=== PATIENT | female | born 2000 | race Caucasian/White ===

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

== ENCOUNTER 2022-01-30 03:24 | Emergency (ER) | payer MEDICAID, SELFPAY ==
[2022-01-30 03:30] VITALS: BP 126/103; PULSE 62; RESP 18; TEMP 36.4; O2SAT 100
--- OUTSIDE RECORDS SUMMARY | 2022-01-30 03:31 | XMS_ITS | Encounter Summary ---
:2000 Author Organization [facility] Address [address] [place] [address] Care Team Providers Name Role Phone Felix Smith MD Primary Care Provider Encounter Details Date Type Department Care Team Description 07/27/2003 Hospital Encounter [facility] - Felix Smith, Trinity MD [address] [facility] [address] [place] [address] [facility] [phone] [place] [id number] (Wo rk) Social History Tobacco Use Types Packs/Day Years Used Date Never Assessed Sex Assigned at Date Recorded Not on file documented as of this encounter Plan of Treatment Not on filedocumented as of this encounter Visit Diagnoses Not on filedocumented in this encounter Care Teams Emergency Services Dispatcher Relationship Specialty Start Date End Date Felix Smith MD PCP - General 01/17/10 [address] [place] [address] documented as of this encounter
--- OUTSIDE RECORDS SUMMARY | 2022-01-30 03:31 | XMS_ITS | Encounter Summary ---
:2000 Author Organization [facility] Address [address] [place] [address] Care Team Providers Name Role Phone Unavailable Primary Care Provider Unavailable Encounter Details Date Type Department Care Team Description 08/04/2005 Hospital En[facility] [id number] [place] [phone] (Wo rk) Social History Tobacco Use Types Packs/Day Years Used Date Never Assessed Sex Assigned at Date Recorded Not on file documented as of this encounter Discharge Disposition Disposition Code Departure Means Destination Auto Discharge documented in this encounter Plan of Treatment Not on filedocumented as of this encounter Visit Diagnoses Not on filedocumented in this encounter
--- OUTSIDE RECORDS SUMMARY | 2022-01-30 03:31 | XMS_ITS | Encounter Summary ---
:2000 Author Organization [facility] Address [address] [place] [address] Care Team Providers Name Role Phone Felix Smith MD Primary Care Provider Encounter Details Date Type Department Care Team Description 02/18/2021 Lab Requisition [facility] Outr Resulting Lab, Pathology & Laboratory Provider [facility] [address] [place] [id number] Social History Tobacco Use Types Packs/Day Years Used Date Never Assessed Sex Assigned at Date Recorded Not on file documented as of this encounter Plan of Treatment Not on filedocumented as of this encounter Procedures Procedure Name Priority Date/Time Associated Comments Diagnosis CHLAMYDIA/N. Routine 02/17/2021 14:15 Results for this GONORRHOEAE AMPLIFIED EDT proced ure are in RNA the results section. documented in this encounter Results CHLAMYDIA/N. GONORRHOEAE AMPLIFIED RNA (02/17/2021 14:15 EDT) Pathologist Sig nature Gonococcus Result Negative Negative [facility] Chlamydia Result Negative Negative [facility] Specimen Urine - Urine, Initial Void Narrative [facility] - 02/19/2021 16:48 EDT A first catch urine specimen is acceptab le for detection of Gonorrhea and Chlamydia, but might detect up to 10% fewer infecti ons when compared with vaginal and endocervical swab samples. Performing Organization Address City/State/ZIP Code Phon e Number [facility] [address] [place] [address] SERVICES documented in this encounter Visit Diagnoses Not on filedocumented in this encounter Care Teams Information Officer Relationship Specialty Start Date End Date Felix Smith MD PCP - General 01/17/10 [address] [place] [address] documented as of this encounter
--- OUTSIDE RECORDS SUMMARY | 2022-01-30 03:31 | XMS_ITS | Encounter Summary ---
:2002 Author Organization [facility] Address [address] [place] [address] Care Team Providers Name Role Phone Felix Smith MD Primary Care Provider Encounter Details Date Type Department Care Team Description 11/04/2021 Lab Requisition [facility] Outr Resulting Lab, Pathology & Laboratory Provider [facility] [address] [place], [place] [address] Social History Tobacco Use Types Packs/Day Years Used Date Never Assessed Sex Assigned at Date Recorded Not on file documented as of this encounter Plan of Treatment Not on filedocumented as of this encounter Procedures Procedure Name Priority Date/Time Associated Comments Diagnosis CHLAMYDIA/N. Routine 11/03/2021 16:00 Results for this GONORRHOEAE AMPLIFIED EDT proced ure are in RNA the results section. documented in this encounter Results CHLAMYDIA/N. GONORRHOEAE AMPLIFIED RNA (11/03/2021 16:00 EDT) Pathologist Sig nature Gonococcus Result Negative Negative [facility] Chlamydia Result Negative Negative [facility] Specimen Swab - Entire endocervix (body structure ) Performing Organization Address City/State/ZIP Code Phon e Number [facility] [address] [place] [address] SERVICES documented in this encounter Visit Diagnoses Not on filedocumented in this encounter Care Teams Parking Regulation Enforcement Officer Relationship Specialty Start Date End Date Felix Smith MD PCP - General 01/17/10 [address] [facility] [place] [address] documented as of this encounter
--- OUTSIDE RECORDS SUMMARY | 2022-01-30 03:31 | XMS_ITS | Encounter Summary ---
:2000 Author Organization Address [address] [place] [address] Care Team Providers Name Role Phone Felix Smith MD Primary Care Provider Reason for Visit Reason Onset Date Comments Head Lice 11/10/2011 Encounter Details Date Type Department Care Team Description 11/10/2011 Telephone [facility] Dereck Ortiz MD Head Lice [facility] - [address] [phone] [place], [place] [id number] [phone] Social History Tobacco Use Types Packs/Day Years Used Date Never Assessed Sex Assigned at Date Recorded Not on file documented as of this encounter Ordered Prescriptions Prescription Sig Dispensed Refills Start Date End Date spinosad 0.9 % Susp Apply 1 application 1 Bottle 1 2 012 11/12/2011 topically daily for 1 day. Repeat once in one week documented in this encounter Miscellaneous Notes Telephone Encounter - Tamara Valdovinos - 11/11/2011 1042 EDT Notified mom that script had been sent in elephone Encounter - Willam Turner MD - 11/11/2011 1035 EDT Script sent in. Will wait to see if PA needed elephone Encounter - Yumiko Stark - 11/11/2011 0938 EDT She used nix OTC and mayonnaise twice for both. elephone Encounter - Willam Turner MD - 11/11/2011 0931 EDT We need to document exactly what she has tried and how many times because the prescriptions require PA elephone Encounter - Yumiko Stark - 11/11/2011 0906 EDT Message forwarded to DR. Turner does patient need office visit or can prescription be called in. Please advise. Thank you Telephone Encounter - Shereen Kerns - 11/10/2011 1612 EDT With mom now for the next week or so, has head lice and mom states she has tried everything, but cannot get rid of them, looking to see if we could call in a prescription for head lice, would like to use [facility] [place] [facility] pt has not been seen here since 01.21.10 and that she may get a phone call back tomorrow documented in this encounter Plan of Treatment Not on filedocumented as of this encounter Visit Diagnoses Not on filedocumented in this encounter Care Teams Paint Prepper Relationship Specialty Start Date End Date Felix Smith MD PCP - General 01/17/10 [address] [place] [address] documented as of this encounter
--- OUTSIDE RECORDS SUMMARY | 2022-01-30 03:31 | XMS_ITS | Encounter Summary ---
:[address] [facility] Address [address] [place] [address] Care Team Providers Name Role Phone Unavailable Primary Care Provider Unavailable Encounter Details Date Type Department Care Team Description 08/04/[address] [facility] - Gwendolyn Nur, Converted Visit Myrna barroso MD (Map) [address] [facility] [address] [place] [address] [place], [place] [phone] (Wo rk) Social History Tobacco Use Types Packs/Day Years Used Date Never Assessed Sex Assigned at Date Recorded Not on file documented as of this encounter Progress Notes Gwendolyn Nur MD - 05/11/2009 0959 EST PROGRESS/FOLLOWUP NOTE - 08/04/2005 August 05, 2005 Felix Smith MD [facility], [address] [place] [address] Smith: I had the pleasure of seeing Jodie in our cardiology clinic on 08/04/2005. She is a 5- year- old child who has been seen in the past and thought to have an innocent murmur. She is here for a followup visit with us. Since her last visit, she has generallybeen healthy. She has required albuterol and Pulmicort by nebulized therapy on a b.i.d. basis. Jodie's pulmonary status has been stable and she hashad no need for a chest x- ray or emergency room visit. At present, she has a mild upper respiratoryinfection. There has been no decline in her exercise tolerance and she seems to keep up easily with other children in running. She has had no dizzy spells or apparent chest discomfort. She has not had any complaints. There were no concerns raised on review of systems. She had PE tube placement withoutanesthetic complications. Jodie has an amoxicillin allergy. On physical examination, her height was 98 cm and weight was 15.1 kg. She had a right arm blood pressure of 97/68 with a pulse of 98 and a respiratory rate of 24. She was a emil little girl, who allowed for good examination. There was no precordial bulge or thrill. Her first and second heart sounds were regular and S2 moved appropriately with respiratory variation. There was no click, gallop, or rub noted. There was only a soft systolic murmur heard at the lower sternal border when she was supine.There was no murmur heard posteriorly. Her lungs were clear without wheezing or increased work of breathing. Her liver was not enlarged and no jugular venousdistention was appreciated. Her peripheral pulses were normal in the upper and lower extremities. Her electrocardiogram demonstrated sinus rhythm with a small rSR' pattern in the right precordium that can be normal for age. There was no atrial enlargement or ventricular hypertrophy seen. There was sinus arrhythmia. Although I felt that Jodie continued to only have an innocent murmur on examination today, I wantedto be sure that there was no atrial defect given her pulmonary issues. Indeed, her echocardiogram demonstrated no evidence of structural abnormality. The atrial septum was intact. She had normal ventricular function and a normal Doppler study of the intracardiac valves. In summary, Jodie is a youngster with an innocent murmur heard on examination today. SBE prophylaxis is not indicated, and we have not restricted her physical activities. We have discussed that her murmur may be more prominent at times when she is excited or ill. We have not made plans to follow her routinely in the cardiology clinic, although we would be happy to see her again in the future if you have any further concerns. Thank you for sending her to see us today. Sincerely, Signed by Gwendolyn Nur MD 08/12/2005 22:02 Elis Nur, [facility] [phone] Ann Drucker, MD Gwendolyn Nur MD Division of Pediatric Cardiology [phone] - Gwendolyn Nur MD P - O4 Job ID: [id number] Document ID: [id number] cc: Felix Smith MD documented in this encounter Plan of Treatment Not on filedocumented as of this encounter Visit Diagnoses Not on filedocumented in this encounter
--- OUTSIDE RECORDS SUMMARY | 2022-01-30 03:31 | XMS_ITS | Encounter Summary ---
:2000 Author Organization [facility] Address [address] [place] [address] Care Team Providers Name Role Phone Unavailable Primary Care Provider Unavailable Encounter Details Date Type Department Care Team Description 2002 - Hospital Encounter [facility] Felix Smith, 2002 Hospital Nursery [facility] [address] [address] [facility] [phone] [place] [address] Social History Tobacco Use Types Packs/Day Years Used Date Never Assessed Sex Assigned at Date Recorded Not on file documented as of this encounter Discharge Disposition Disposition Code Departure Means Destination Home-Health Care Svc documented in this encounter Plan of Treatment Not on filedocumented as of this encounter Visit Diagnoses Not on filedocumented in this encounter
--- OUTSIDE RECORDS SUMMARY | 2022-01-30 03:31 | XMS_ITS | Encounter Summary ---
:[address] [facility] Address [address] [place] [address] Care Team Providers Name Role Phone Unavailable Primary Care Provider Unavailable Encounter Details Date Type Department Care Team Description 07/03/2003 Hospital Encounter [facility] - Michelle Meza [facility] MD Adam 111 [facility] [address] [place], [place] [phone] [place] [address] [facility] Level [address] [place] [phone] (Wo rk) Social History Tobacco Use Types [...]
--- OUTSIDE RECORDS SUMMARY | 2022-01-30 03:31 | XMS_ITS | Encounter Summary ---
:2000 Author Organization [facility] Address [address] [place] [address] Care Team Providers Name Role Phone Felix Smith MD Primary Care Provider Reason for Visit Reason Onset Date Comments Head Lice 11/11/2011 Encounter Details Date Type Department Care Team Description 11/11/2011 Telephone [facility] Felix Alarcon MD Head Lice [facility] [id number] [place] [phone] (Wo rk) Social History Tobacco Use Types Packs/Day Years Used Date Never Assessed Sex Assigned at Date Recorded Not on file documented as of this encounter Miscellaneous Notes Telephone Encounter - Tamara Valdovinos - 11/11/2011 1500 EDT Mom calling that the med is not going to be in until tomorrow is using curtis and would like to know how long she should leave it on? Instructed Mom that the longer she leaves it on the better it is documented in this encounter Plan of Treatment Not on filedocumented as of this encounter Visit Diagnoses Not on filedocumented in this encounter Care Teams Merchandise Adjustment Clerk Relationship Specialty Start Date End Date Felix Smith MD PCP - General 01/17/10 [address] [place] [phone] documented as of this encounter
--- OUTSIDE RECORDS SUMMARY | 2022-01-30 03:31 | XMS_ITS | Encounter Summary ---
:2000 Author Organization [facility] Address [address] [place] [address] Care Team Providers Name Role Phone Felix Smith MD Primary Care Provider Encounter Details Date Type Department Care Team Description 2002 Hospital [facility] 111 [facility] [address] [place], [place] [phone] [place] [phone] (Wo rk) Social History Tobacco Use Types Packs/Day Years Used Date Never Assessed Sex Assigned at Date Recorded Not on file documented as of this encounter Plan of Treatment Not on filedocumented as of this encounter Visit Diagnoses Not on filedocumented in this encounter Care Teams Veterinary Physiologist Relationship Specialty Start Date End Date Felix Smith MD PCP - General 01/17/[address] [place] [phone] documented as of this encounter
[2022-01-30 03:51] LABS: Abs Immature Grans 0.03 10^3/uL (0.0-0.06); Absolute Basophil Count 0.03 10^3/uL (0.0-0.2); Absolute Eosinophil Count 0.09 10^3/uL (0.0-0.7); Absolute Lymphocyte Count 2.17 10^3/uL (1.2-3.4); Absolute Monocyte Count 0.81 10^3/uL (0.1-0.8); Basophils % 0.3; Eosinophils % 0.8; HCT 37.8 % (36.0-46.0); HGB 13.3 g/dL (11.2-15.7); Immature Grans % 0.3; Lymphocytes % 19.7; MCH 30.6 pg (27.0-33.0); MCHC 35.2 % (32.0-36.0); MCV 87 fL (80-95); MPV 9.1 fL (8.0-11.0); Monocytes % 7.3; Neutrophils % 71.6; Platelet Count 292 10^3/uL (130-400); RBC 4.34 10^6/uL (3.93-5.22); RDW 11.5 % (11.7-14.6); RDW-SD 36.9 fL; WBC 11.04 10^3/uL (4.4-10.8)
[2022-01-30] MEDS: Ondansetron 4 MG/2 ML VIAL IVP (03:55)
[2022-01-30] MEDS: Normal Saline 1,000 ML 1000 ML IV (03:55)
--- NOTE | 2022-01-30 03:58 | ED.GENADUL_ITS ---
Discharge Plan Disposition Patient Disposition: HOME Condition: Good Discharge Details Clinical Impression: Hyperemesis gravidarum, Acute dehydration Primary Care Provider: Kristine Jefferson ED Provider: Alfredito Durán Home Meds and New Rx's Prescriptions: No Action Caziant (28) 0.1/.125/.15-25 mg-mcg tablet 1 tab PO DAILY Qty: 84 4RF Discharge Instructions Instructions: Hyperemesis Gravidarum (ED) Additional Instructions: At this time you have nausea and vomiting associated with . Please take the Zofran as needed. Please take the Mylanta that you have at home to help with the irritation in your stomach. Avoid any greasy, fatty, or spicy or tomato-based products. Please stick with a bland diet of rice, bananas, oatmeal, and crackers. Please drink plenty of fluids, 10 to 12 cups of water per day. If you notice any worsening of your symptoms, or any new symptoms such as vomiting, diarrhea, fever, chills, shortness of breath, chest pain, numbness, weakness, or fainting , please return immediately to the emergency department for reevaluation. Please follow up with your primary care provider as soon as possible for reassessment and reevaluation. As always, it was a pleasure participating in your medical care today. Referrals: Kristine Jefferson, CUSTOMER ENGAGEMENT REPRESENTATIVE [Primary Care Provider] - Medical Decision Making This is a pleasant 21-year-old female who is currently 8 weeks who is a G1, P0, who presents today for vomiting. She states that for the last week she has had notable nausea, but over the last 8 hours she has had persistent unremitting vomiting. She admits to generalized abdominal achiness. She denies any fever or chills. No blood in her vomitus. She denies any chest pain. She denies any other complaints at this time. No other modifying factors. Physical exam demonstrates notably dry mucous membranes, mild epigastric achiness. No signs of an acute surgical abdomen. Differential is highest for hyperemesis gravidarum. We will rehydrate, evaluate for electrolyte abnormalities, treat the patient's nausea, monitor closely and reassess. 5:38 AM Patient has been rehydrated, she tolerated GI cocktail and p.o. trial. She is feeling much better and is requesting to go home. She will be given Zofran to go. Recommend foods high in potassium. Laboratory work-up is otherwise stable with electrolytes being unremarkable aside from minimally low potassium at 3.3. Lipase is normal. Symptoms consistent with mild hyperemesis gravidarum. Discussed red flags for which to return. I have extensively reviewed the treatment plan and discharge instructions with the patient. I have addressed all patient concerns at this time. The patient was made aware of what symptoms to monitor for that would warrant a return to the emergency department. Discussed the plan with the patient, they demonstrate verbal understanding and agreement with our assessment and plan at this time. The documentation in this chart was dictated using IVFXPERT dictation software. Please excuse any dictation errors. HPI General Date/Time Provider Initiated Documentation: 01/30/22 03:27 . HPI Narrative: This is a pleasant 21-year-old female who is currently 8 weeks who is a G1, P0, who presents today for vomiting. She states that for the last week she has had notable nausea, but over the last 8 hours she has had persistent unremitting vomiting. She admits to generalized abdominal achiness. She denies any fever or chills. No blood in her vomitus. She denies any chest pain. She denies any other complaints at this time. No other modifying factors. Related Data Home Medications Medication Instructions Recorded Confirmed desogestrel-ethinyl estradiol 0.1 1 tab PO DAILY #84 tabs 11/03/21 01/30/22 mg/0.125 mg/0.15 mg-25 mcg tablet (Caziant (28)) Previous Rx's Medication Instructions Recorded desogestrel-ethinyl estradiol 0.1 1 tab PO DAILY #84 tabs 11/03/21 mg/0.125 mg/0.15 mg-25 mcg tablet (Caziant (28)) Allergies Allergy/AdvReac Type Severity Reaction Status Date / Time Penicillins Allergy Unverified 01/30/22 03:35 General Stated Complaint: Nausea/Vomit/Diar ALLY: 3 Review of Systems All systems reviewed & are unremarkable except as noted in HPI and below PFSH All Active Problems (Updated 01/30/22 @ 05:37 by Alfredito Durán DO) Hyperemesis gravidarum (Acute) Acute dehydration (Acute) Uses contraception (Acute) OCPs until 02/2021. Liletta IUD for convenience Until 10/2021 but it was removed and OCPs to be started Oral contraception initial prescription (Acute) Bipolar disorder (Acute) Anxiety and depression (Chronic) Abdominal pain (Acute) Urinary tract infection (Acute) Constipation (Acute) Nausea and vomiting (Acute) Ovarian cyst (Acute) Gastritis (Acute) Trauma and stressor-related disorder (Acute) Medical History Elevated lipids (02/25/16) Encounter for IUD removal Penicillin allergy Smoker in home outside Wears glasses Surgical History Myringotomy w/ PE (pressure equalizing) tubes bilateral; needed f/u surgery for perforated tympanic membrane. Family History Mother Mental disorder anxiety/depression Father No problems noted. Other Substance abuse mat/pat sides Alcohol abuse mat/pat sides Essential hypertension pat uncle Heart disease pat GGF & MGF Hyperlipidemia PGF Myocardial infarction pat GGF Asthma mat/pat sides Social History Smoking/Tobacco Use Status: Current every day Tobacco Type: e-cigarettes and smokeless tobacco Second Hand Exposure: Yes Smoking risk assessment performed?: Yes Alcohol Intake: never Drug use: Daily Substance use type: marijuana Adopted: No Foster care: No Household members: other Details: - C. J. 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 Pets and animals: Yes (1 cat) Pets and animals: cat(s) Current gender identity: female Seatbelt use: always Helmet use: Yes Fire extinguisher in home: Yes Carbon monox detector in home: Yes Firearms in home: No Do you feel safe at home: Yes Do you feel safe in your relationship?: Yes History History 1 Para Hx # Term Pregnancies Multiple births Hx # Pregnancies Ectopic pregnancies AB induced Hx Number of Living Children AB spontaneous Exam Narrative Exam Narrative: 1.Const: Well-nourished, Well-developed, appearing stated age 2.Eyes: PERRL, no conjunctival injection, and symmetrical lids. 3.ENT: Atraumatic external nose and ears. Notably dry MM. Neck: Symmetric, trachea midline, No thyromegaly. 4.CVS: +S1/S2, No murmurs or gallops. Peripheral pulses 2+ and equal in all extremities. Brisk capillary refill in all extremities. 5.RESP: Unlabored respiratory effort. Clear to auscultation bilaterally. No wheezes rales or rhonchi 6.GI: Soft, nondistended. No guarding or rebound. Mild epigastric achiness. 7.MSK: Normocephalic/Atraumatic, Extremities w/o deformity or ttp No cyanosis or clubbing, Normal movement of all extremities 8.Skin: Warm, Dry. No rashes or lesions. 9.Neuro: composition mixer II-XII grossly intact. Sensation grossly intact, no focal neurologic deficits. 10.Psych: (AAO) x3. Appropriate mood and affect Course Vital Signs Vital signs: Vital Signs Temperature 36.4 C L 01/30/22 03:30 Pulse 62 01/30/22 03:30 Respiratory Rate 18 01/30/22 03:30 Blood Pressure 126/103 H 01/30/22 03:30 Pulse Oximetry 100 01/30/22 03:30 Temperature 36.4 C L 01/30/22 03:30 Temperature Source Skin 01/30/22 03:30 Pulse 62 01/30/22 03:30 Respiratory Rate 18 01/30/22 03:30 Respiratory Effort 01/30/22 03:34 Blood Pressure 126/103 H 01/30/22 03:30 Blood Pressure Position Sitting 01/30/22 03:30 Pulse Oximetry 100 01/30/22 03:30 Oxygen Delivery Method Room Air 01/30/22 03:30 Oxygen Flow Rate 0 01/30/22 03:30 Pain Level 8 01/30/22 03:30 Comment 01/30/22 03:30 Lab/Test Results Lab/Test Results: Laboratory Tests Range/Units 01/30/22 03:49 WBC (4.4-10.8) 10^3/uL 11.04 H RBC (3.93-5.22) 10^6/uL 4.34 Hgb (11.2-15.7) g/dL 13.3 Hct (36.0-46.0) % 37.8 MCV (80-95) fL 87 MCH (27.0-33.0) pg 30.6 MCHC (32.0-36.0) % 35.2 RDW (11.7-14.6) % 11.5 L Plt Count (130-400) 10^3/uL 292 MPV (8.0-11.0) fL 9.1 Immature Gran % 0.3 Neutrophils % 71.6 Lymphocytes % 19.7 Monocytes % 7.3 Eosinophils % 0.8 Basophils % 0.3 Nucleated RBC % (0.0-0.3) % 0.0 Absolute Neutrophils (1.2-6.7) 10^3/uL 7.90 H Absolute Lymphocytes (1.2-3.4) 10^3/uL 2.17 Absolute Monocytes (0.1-0.8) 10^3/uL 0.81 H Absolute Eosinophils (0.0-0.7) 10^3/uL 0.09 Absolute Basophils (0.0-0.2) 10^3/uL 0.03
[2022-01-30] MEDS: Metoclopramide 10 MG/2 ML VIAL 20 MG IVP (04:11)
[2022-01-30 04:13] LABS: ALT 17 U/L (14-59); AST 10 U/L (15-37); Albumin 4.2 g/dL (3.4-5.0); Alkaline Phosphatase 52 U/L (46-116); Anion Gap 9.6 mmol/L (3-11); BUN 10 mg/dL (7-18); Bilirubin, Total 0.5 mg/dL (0.2-1.0); CO2 27.4 mmol/L (21.0-32.0); CREATININE 0.7 mg/dL (0.55-1.02); Calcium 9.4 mg/dL (8.5-10.1); Chloride 102 mmol/L (98-107); Estimated GFR 127.69 (mL/min/1.73m2); Glucose 106 mg/dL (74-106); Lipase 149 U/L (73-393); Potassium 3.3 mmol/L (3.5-5.1); Sodium 139 mmol/L (136-145); Total Protein 8.1 g/dL (6.4-8.2)
[2022-01-30] MEDS: Ondansetron O.D.T. 4 MG TABEF, 3 TABS/BTL PO (05:41)
== END 2022-01-30 05:45 | disposition home or self-care (01) ==
PROVIDERS: Emergency Provider Student in an Organized Health Care Education/Training Program; PCP Nurse Practitioner Pediatrics
DX: O21.1 Hyperemesis gravidarum with metabolic disturbance (principal); O99.331 Smoking (tobacco) complicating pregnancy, first trimester; F17.290 Nicotine dependence, other tobacco product, uncomplicated; Z3A.08 8 weeks gestation of pregnancy
CPT/HCPCS: 80053; 83690; 96361; 96374; 96375; 99284; 83735; 85025; J2405; J2765

== ENCOUNTER 2022-03-31 11:01 | Emergency (ER) | payer MEDICAID, SELFPAY ==
[2022-03-31 11:09] VITALS: BP 125/76; PULSE 108; RESP 17; TEMP 38.1; O2SAT 97
[2022-03-31] MEDS: Ibuprofen 600 MG TAB PO (11:24)
--- NOTE | 2022-03-31 11:30 | DI.RAD_ITS ---
Exam(s) XR CHEST 2V PA LATERAL EXAM: XR CHEST 2V PA LATERAL CLINICAL HISTORY: chest pain. TECHNIQUE: 2D digital imaging was performed. COMPARISON: CR,XR XR ABD FLAT UPRIGHT PA CHEST from 03/27/2021 FINDINGS: 2 views: Heart size is normal. The mediastinum is not widened. Lungs are clear. No infiltrates nor pleural effusions. IMPRESSION: No acute pulmonary findings. DATA REPOSITORY: RADIATION DOSE DELIVERED:
--- NOTE | 2022-03-31 12:33 | W.ED.GENAD ---
Discharge Plan Disposition Patient Disposition: HOME Condition: Stable Discharge Details Clinical Impression: Bronchitis, Acute viral syndrome Primary Care Provider: Kristine Jefferson ED Provider: Yvonne Mooney Home Meds and New Rx's Prescriptions: New albuterol sulfate 90 mcg/actuation HFA aerosol inhaler 1 inh inhalation ONCE Qty: 6.7 0RF Continued Caziant (28) 0.1/.125/.15-25 mg-mcg tablet 1 tab PO DAILY Qty: 84 4RF bupropion HCl [Wellbutrin XL] 150 mg tablet extended release 24 hr 150 mg PO QAM Qty: 30 1RF Rx Instructions: take one tablet once a day in the morning Discharge Instructions Instructions: Acute Bronchitis (ED), Viral Syndrome (ED) Additional Instructions: Use the inhaler as prescribed Take ibuprofen and Tylenol for fever control You should not return to work until you are 24 hours fever free Stand Alone Forms: Work Release Referrals: Kristine Jefferson, HEADLINE WRITER [Primary Care Provider] - Discharge Data Discharge Date/Time-TO BE ENTERED AT DEPARTURE: 03/31/22 13:33 Medical Decision Making Patient is COVID-positive, she has negative D-dimer, I see no clear indication for CT at this time She is stable, she will continue to isolate offered paxlovid with secondary tobacco use in the setting of COVID-19 and she has declined She is not hypoxic Albuterol inhaler Take ibuprofen and Tylenol as needed for pain Recheck in 24 to 48 hours recommended Early return precautions discussed and patient expressed understanding Medical Records Medical records reviewed: Yes I reviewed the patient's medical records. Lab Data Lab results reviewed: Yes I reviewed the patient's lab results. ECG Data Prior ECG tracings: available for review HPI General Date/Time Provider Initiated Documentation: 03/31/22 11:02. HPI Narrative: This 19-year-old female with history of anxiety, depression presents with report of feeling tired and having pleuritic chest pain was started yesterday. Nausea with vomiting yesterday. Denies nausea today. Denies any shortness of breath. Denies any calf pain or swelling. Related Data Home Medications Medication Instructions Recorded Confirmed desogestrel-ethinyl estradiol 0.1 1 tab PO DAILY #84 tabs 11/03/21 03/31/22 mg/0.125 mg/0.15 mg-25 mcg tablet (Caziant (28)) bupropion HCl 150 mg 24 hr tablet, 150 mg PO QAM #30 tabs 03/23/22 03/31/22 extended release (Wellbutrin XL) albuterol sulfate 90 mcg/actuation 1 inh inhalation ONCE #6.7 grams 03/31/22 aerosol inhaler Previous Rx's Medication Instructions Recorded desogestrel-ethinyl estradiol 0.1 1 tab PO DAILY #84 tabs 11/03/21 mg/0.125 mg/0.15 mg-25 mcg tablet (Caziant (28)) bupropion HCl 150 mg 24 hr tablet, 150 mg PO QAM #30 tabs 03/23/22 extended release (Wellbutrin XL) albuterol sulfate 90 mcg/actuation 1 inh inhalation ONCE #6.7 grams 03/31/22 aerosol inhaler Allergies Allergy/AdvReac Type Severity Reaction Status Date / Time Penicillins Allergy Unverified 03/31/22 11:13 General Stated Complaint: RespSymp ALLY: 3 Review of Systems All systems reviewed & are unremarkable except as noted in HPI and below PFSH All Active Problems (Updated 03/31/22 @ 13:17 by SID Calvert) Bronchitis (Acute) Acute viral syndrome (Acute) Uses contraception (Acute) OCPs until 02/2021. Liletta IUD for convenience Until 10/2021 but it was removed and OCPs to be started Oral contraception initial prescription (Acute) Bipolar disorder (Acute) Anxiety and depression (Chronic) Abdominal pain (Acute) Urinary tract infection (Acute) Constipation (Acute) Nausea and vomiting (Acute) Ovarian cyst (Acute) Gastritis (Acute) Trauma and stressor-related disorder (Acute) Medical History Elevated lipids (02/25/16) Encounter for IUD removal Penicillin allergy Smoker in home outside Wears glasses Surgical History Myringotomy w/ PE (pressure equalizing) tubes bilateral; needed f/u surgery for perforated tympanic membrane. Family History Mother Mental disorder anxiety/depression Father No problems noted. Other Substance abuse mat/pat sides Alcohol abuse mat/pat sides Essential hypertension pat uncle Heart disease pat GGF & MGF Hyperlipidemia PGF Myocardial infarction pat GGF Asthma mat/pat sides Social History Smoking/Tobacco Use Status: Current every day Tobacco Type: e-cigarettes and smokeless tobacco Second Hand Exposure: Yes Smoking risk assessment performed?: Yes Alcohol Intake: current Alcohol Intake frequency: a few times a month Drug use: Daily Substance use type: marijuana Adopted: No Foster care: No Household members: other Details: - Janak. 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 Pets and animals: Yes (1 cat) Pets and animals: cat(s) Current gender identity: female Seatbelt use: always Helmet use: Yes Fire extinguisher in home: Yes Carbon monox detector in home: Yes Firearms in home: No Do you feel safe at home: Yes Do you feel safe in your relationship?: Yes History History 1 Para Hx # Term Pregnancies Multiple births Hx # Pregnancies Ectopic pregnancies AB induced Hx Number of Living Children AB spontaneous Exam Const General: cooperative, comfortable and no acute distress Chest Other: Reproducible left chest wall tenderness without Resp Effort & Inspection: normal respiratory effort Auscultation: clear to auscultation bilaterally Cardio Rate: regular rate Rhythm: regular rhythm GI Inspection: normal to inspection Other: No abdominal tenderness Skin General skin exam: no rashes or lesions noted Extrem Other: or tenderness, distal pulses intact Course Vital Signs Vital signs: Vital Signs Temperature 38.1 C H 03/31/22 11:09 Pulse 108 H 03/31/22 11:09 Respiratory Rate 17 03/31/22 11:09 Blood Pressure 125/76 03/31/22 11:09 Pulse Oximetry 97 03/31/22 11:09 Temperature 38.1 C H 03/31/22 11:09 Temperature Source Temporal Artery Scan 03/31/22 11:09 Pulse 108 H 03/31/22 11:09 Respiratory Rate 17 03/31/22 11:09 Respiratory Effort Short of Breath 03/31/22 11:14 Respiratory Depth Normal 03/31/22 11:14 Blood Pressure 125/76 03/31/22 11:09 Blood Pressure Position Sitting 03/31/22 11:09 Pulse Oximetry 97 03/31/22 11:09 Oxygen Delivery Method Room Air 03/31/22 11:09 Oxygen Flow Rate 0 03/31/22 11:09 Pain Level 6 03/31/22 11:09 Lab/Test Results Lab/Test Results: POC- Test(urine) Negative PAWSS Have you Been Recently Intoxicated or Drunk Within the Last 30 days?: No Have you Ever Experienced Previous Episodes of Alcohol Withdrawal?: No Have you ever Experienced Withdrawal Seizures?: No Have you ever Experienced Delirium Tremens(DT)s?: No Have you ever undergone Alcohol Rehabilitation Treatment (i.e, inpt ot outpatient treatment programs)?: No Have you ever Experienced Blackouts?: No Have you ever Combined Alcohol with other Downers within the last 90 days?: No Have you ever Combined Alcohol with any other Substance of Abuse during the last 90 days?: No Result: 0
[2022-03-31 13:01] LABS: D-Dimer 255 ng/mlFEU (<500)
[2022-03-31] MEDS: Inhaler, Assist Device 1 EACH MC (13:32)
== END 2022-03-31 13:33 | disposition home or self-care (01) ==
PROVIDERS: Emergency Provider Physician Assistant; PCP Nurse Practitioner Pediatrics
DX: J40 Bronchitis, not specified as acute or chronic (principal); U07.1 COVID-19; F17.290 Nicotine dependence, other tobacco product, uncomplicated
CPT/HCPCS: 36415; 81025; 99283; 71046; 85379; 99284

== ENCOUNTER 2022-06-08 03:45 | Emergency (ER) | payer MEDICAID, SELFPAY ==
[2022-06-08 03:51] VITALS: BP 114/79; PULSE 83; RESP 16; TEMP 36; O2SAT 98
[2022-06-08] MEDS: Normal Saline 1,000 ML 1000 ML IV (04:02)
[2022-06-08] MEDS: Ondansetron 4 MG/2 ML VIAL IVP (04:02)
[2022-06-08 04:06] LABS: Abs Immature Grans 0.09 10^3/uL (0.0-0.06); Absolute Monocyte Count 0.96 10^3/uL (0.1-0.8); Basophils % 0.3; HCT 40.5 % (36.0-46.0); HGB 14.6 g/dL (11.2-15.7); Immature Grans % 0.4; Lymphocytes % 5.7; MCH 31.3 pg (27.0-33.0); MCV 87 fL (80-95); MPV 8.8 fL (8.0-11.0); Monocytes % 4.1; Neutrophils % 89.5; Platelet Count 291 10^3/uL (130-400); RBC 4.66 10^6/uL (3.93-5.22); RDW 11.9 % (11.7-14.6); WBC 23.53 10^3/uL (4.4-10.8)
[2022-06-08 04:08] LABS: Absolute Basophil Count 0.07 10^3/uL (0.0-0.2); Absolute Lymphocyte Count 1.34 10^3/uL (1.2-3.4); Absolute Neutrophil Count 21.06 10^3/uL (1.2-6.7)
--- NOTE | 2022-06-08 04:12 | ED.GENADUL_ITS ---
Discharge Plan Disposition Patient Disposition: Home Condition: Good Discharge Details Chief Complaint: Nausea/Vomit/Diar Clinical Impression: Nausea & vomiting Primary Care Provider: Kristine Jefferson ED Provider: Alfredito Durán Home Meds and New Rx's Prescriptions: No Action Caziant (28) 0.1/.125/.15-25 mg-mcg tablet 1 tab PO DAILY Qty: 84 4RF bupropion HCl [Wellbutrin XL] 150 mg tablet extended release 24 hr 150 mg PO QAM Qty: 30 1RF Rx Instructions: take one tablet once a day in the morning albuterol sulfate 90 mcg/actuation HFA aerosol inhaler 1 inh inhalation ONCE Qty: 6.7 0RF Discharge Instructions Instructions: Acute Nausea and Vomiting (ED) Additional Instructions: I suspect your nausea and vomiting is secondary to the alcohol intake. Please avoid any alcohol for the next few days. Take Tums or Pepto-Bismol as needed for stomach irritation. Drink plenty of fluids and stay well-hydrated. Take the Zofran as needed for nausea. If you notice any worsening of your symptoms, or any new symptoms such as vomiting, diarrhea, fever, chills, shortness of breath, chest pain, numbness, weakness, or fainting , please return immediately to the emergency department for reevaluation. Please follow up with your primary care provider as soon as possible for reassessment and reevaluation. As always, it was a pleasure participating in your medical care today. Referrals: Kristine Jefferson, DIRECTOR OF [employer] MARKETING [Primary Care Provider] - Medical Decision Making 21-year-old female with a past medical history of ovarian cysts, bipolar disorder, presents today for nausea and vomiting after drinking. Patient states that she had an excessive amount of alcohol earlier today, and has subsequently been notably nauseous and vomiting. She denies any hematemesis. She denies any diarrhea. She denies usually having a problem with drinking. She denies current . No other complaints at this time. No abdominal pain. Exam demonstrates well-appearing female, nontender nondistended nonsurgical abdomen. Dry mucous membranes. Suspect gastritis secondary to alcohol. Will give Zofran, rehydrate get basic labs to evaluate for pancreatitis, monitor closely and reassess. 4:42 AM Laboratory work-up has returned and shows an elevated white count, but no bandemia. Electrolytes stable. Lipase normal. On reassessment patient is feeling much better, her nausea has completely resolved. She still has no abdominal pain. She continues to demonstrate a notably nonsurgical abdomen. She has tolerated p.o. well. She is requesting to go home right away. I do feel that this is reasonable at this time. Symptoms consistent with mild alcoholic gastritis. Recommend fluids at home, Pepto-Bismol and Tums, and return if symptoms worsen. Discussed red flags which to return. I have extensively reviewed the treatment plan and discharge instructions with the patient. I have addressed all patient concerns at this time. The patient was made aware of what symptoms to monitor for that would warrant a return to the emergency department. Discussed the plan with the patient, they demonstrate verbal understanding and agreement with our assessment and plan at this time. The documentation in this chart was dictated using [employer] dictation software. Please excuse any dictation errors. HPI General Date/Time Provider Initiated Documentation: 06/08/22 03:47 . HPI Narrative: 21-year-old female with a past medical history of ovarian cysts, bipolar disorder, presents today for nausea and vomiting after drinking. Patient states that she had an excessive amount of alcohol earlier today, and has subsequently been notably nauseous and vomiting. She denies any h ematemesis. She denies any diarrhea. She denies usually having a problem with drinking. She denies current . No other complaints at this time. No abdominal pain. Related Data Home Medications Medication Instructions Recorded Confirmed desogestrel-ethinyl estradiol 0.1 1 tab PO DAILY #84 tabs 11/03/21 06/08/22 mg/0.125 mg/0.15 mg-25 mcg tablet (Caziant (28)) albuterol sulfate 90 mcg/actuation 1 inh inhalation ONCE #6.7 grams 03/31/22 06/08/22 aerosol inhaler bupropion HCl 150 mg 24 hr tablet, 150 mg PO QAM #30 tabs 04/20/22 06/08/22 extended release (Wellbutrin XL) Previous Rx's Medication Instructions Recorded desogestrel-ethinyl estradiol 0.1 1 tab PO DAILY #84 tabs 11/03/21 mg/0.125 mg/0.15 mg-25 mcg tablet (Caziant (28)) albuterol sulfate 90 mcg/actuation 1 inh inhalation ONCE #6.7 grams 03/31/22 aerosol inhaler bupropion HCl 150 mg 24 hr tablet, 150 mg PO QAM #30 tabs 04/20/22 extended release (Wellbutrin XL) Allergies Allergy/AdvReac Type Severity Reaction Status Date / Time Penicillins Allergy Unverified 06/08/22 03:55 General Stated Complaint: Nausea/Vomit/Diar ALLY: 3 Review of Systems All systems reviewed & are unremarkable except as noted in HPI and below PFSH All Active Problems (Updated 06/08/22 @ 04:41 by Alfredito Durán DO) Nausea & vomiting (Acute) ADD (attention deficit disorder) (Chronic) ADHD Adult Self -Report - very positive for ADD. has h/o inattention throughout school years Uses contraception (Acute) OCPs until 02/2021. Liletta IUD for convenience Until 10/2021 but it was removed and OCPs to be started Oral contraception initial prescription (Acute) Bipolar disorder (Acute) Anxiety and depression (Chronic) Abdominal pain (Acute) Urinary tract infection (Acute) Constipation (Acute) Nausea and vomiting (Acute) Ovarian cyst (Acute) Gastritis (Acute) Trauma and stressor-related disorder (Acute) Medical History Elevated lipids (02/25/16) Encounter for IUD removal Penicillin allergy Smoker in home outside Wears glasses Surgical History Myringotomy w/ PE (pressure equalizing) tubes bilateral; needed f/u surgery for perforated tympanic membrane. Family History Mother Mental disorder anxiety/depression Father No problems noted. Other Substance abuse mat/pat sides Alcohol abuse mat/pat sides Essential hypertension pat uncle Heart disease pat GGF & MGF Hyperlipidemia PGF Myocardial infarction pat GGF Asthma mat/pat sides Social History Smoking/Tobacco Use Status: Current every day Tobacco Type: e-cigarettes and smokeless tobacco Second Hand Exposure: Yes Smoking risk assessment performed?: Yes Alcohol Intake: current Alcohol Intake frequency: a few times a week Drug use: Daily Substance use type: marijuana Adopted: No Foster care: No Household members: other Details: ALISON Seema JanakGiuliano CaroGiuliano Number of Children: 0 Education Level: high school 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 Pets and animals: Yes (1 cat) Pets and animals: cat(s) Current gender identity: female Seatbelt use: always Helmet use: Yes Fire extinguisher in home: Yes Carbon monox detector in home: Yes Firearms in home: No Do you feel safe at home: Yes Do you feel safe in your relationship?: Yes History History 1 Para Hx # Term Pregnancies Multiple births Hx # Pregnancies Ectopic pregnancies AB induced Hx Number of Living Children AB spontaneous Exam Narrative Exam Narrative: 1.Const: Well-nourished, Well-developed, appearing stated age 2.Eyes: PERRL, no conjunctival injection, and symmetrical lids. 3.ENT: Atraumatic external nose and ears. Dry MM. Neck: Symmetric, trachea midline, No thyromegaly. 4.CVS: +S1/S2, No murmurs or gallops. Peripheral pulses 2+ and equal in all extremities. Brisk capillary refill in all extremities. 5.RESP: Unlabored respiratory effort. Clear to auscultation bilaterally. No wheezes rales or rhonchi 6.GI: Soft, Nontender/Nondistended, No hepatosplenomegaly. No guarding or rebound. No pain at McBurney's. Negative Person sign 7.MSK: Normocephalic/Atraumatic, Extremities w/o deformity or ttp No cyanosis or clubbing, Normal movement of all extremities 8.Skin: Warm, Dry. No rashes or lesions. 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 Sensation grossly intact, no focal neurologic deficits. 10.Psych: (AAO) x3. Appropriate mood and affect Course Vital Signs Vital signs: Vital Signs Temperature 36 C L 06/08/22 03:51 Pulse 83 06/08/22 03:51 Respiratory Rate 16 06/08/22 03:51 Blood Pressure 114/79 06/08/22 03:51 Pulse Oximetry 98 06/08/22 03:51 Temperature 36 C L 06/08/22 03:51 Temperature Source Temporal Artery Scan 06/08/22 03:51 Pulse 83 06/08/22 03:51 Respiratory Rate 16 06/08/22 03:51 Respiratory Effort 06/08/22 03:51 Blood Pressure 114/79 06/08/22 03:51 Blood Pressure Position Sitting 06/08/22 03:51 Pulse Oximetry 98 06/08/22 03:51 Oxygen Delivery Method Room Air 06/08/22 03:51 Oxygen Flow Rate 0 06/08/22 03:51 Pain Level 7 06/08/22 03:51 PAWSS Have you Been Recently Intoxicated or Drunk Within the Last 30 days?: Yes Have you Ever Experienced Previous Episodes of Alcohol Withdrawal?: No Have you ever Experienced Withdrawal Seizures?: No Have you ever Experienced Delirium Tremens(DT)s?: No Have you ever undergone Alcohol Rehabilitation Treatment (i.e, inpt ot outpatient treatment programs)?: No Have you ever Experienced Blackouts?: No Have you ever Combined Alcohol with other Downers within the last 90 days?: No Have you ever Combined Alcohol with any other Substance of Abuse during the last 90 days?: No Positive Blood Alcohol level on Presentation? [PCS.BAL]: No Evidence of Increased Autonomic Activity (i.e. HR>120, tremor, sweating, agitation, nausea)?: No Result: 1
[2022-06-08 04:25] LABS: ALT 22 U/L (14-59); AST 21 U/L (15-37); Albumin 4.1 g/dL (3.4-5.0); Alkaline Phosphatase 51 U/L (46-116); BUN 10 mg/dL (7-18); Bilirubin, Total 0.5 mg/dL (0.2-1.0); CO2 27.5 mmol/L (21.0-32.0); CREATININE 0.7 mg/dL (0.55-1.02); Chloride 101 mmol/L (98-107); Estimated GFR 127.69 (mL/min/1.73m2); Glucose 113 mg/dL (74-106); Lipase 82 U/L (73-393); Total Protein 8.1 g/dL (6.4-8.2)
[2022-06-08 04:28] LABS: Diff Comment Agrees w/ Instrument; RBC Morphology Normal
[2022-06-08 04:31] LABS: Anion Gap 10.5 mmol/L (3-11); Potassium 3.7 mmol/L (3.5-5.1); Sodium 139 mmol/L (136-145)
[2022-06-08] MEDS: Ondansetron O.D.T. 4 MG TABEF, 3 TABS/BTL PO (04:40)
[2022-06-08 04:48] VITALS: BP 119/77; PULSE 60; RESP 16; TEMP 36; O2SAT 100
== END 2022-06-08 04:48 | disposition home or self-care (01) ==
PROVIDERS: Emergency Provider Student in an Organized Health Care Education/Training Program; PCP Nurse Practitioner Pediatrics
DX: R11.2 Nausea with vomiting, unspecified (principal); D72.829 Elevated white blood cell count, unspecified
CPT/HCPCS: 36415; 80053; 81025; 83690; 96361; 96374; 99284; 85025; J2405

== ENCOUNTER 2022-06-23 10:27 | Emergency (ER) | payer MEDICAID, SELFPAY ==
[2022-06-23 10:33] VITALS: BP 121/88; PULSE 90; RESP 20; TEMP 37; O2SAT 98
--- NOTE | 2022-06-23 10:45 | DI.RAD_ITS ---
Exam(s) XR ABDOMEN FLAT PLATE EXAM: XR ABDOMEN FLAT PLATE CLINICAL HISTORY: constipation, cramping. TECHNIQUE: 2D digital imaging was performed. COMPARISON: No exams were available for comparison FINDINGS: Single AP view of the abdomen. The bowel gas pattern is nonspecific in the supine position. The amount of fecal material in the col on is judged to be normal. There are no dilated bowel. No abnormal calcifications over the kidneys in course of the ureters. Regional bones appear unremarkable. IMPRESSION: As above. No specific radiographic abnormal findings DATA REPOSITORY: RADIATION DOSE DELIVERED:
--- NOTE | 2022-06-23 10:50 | W.ED.GENAD ---
Discharge Plan Disposition Patient Disposition: Home Condition: Improving Discharge Details Clinical Impression: Constipation Primary Care Provider: Kristine Jefferson ED Provider: Biju Matias Home Meds and New Rx's Prescriptions: Continued Caziant (28) 0.1/.125/.15-25 mg-mcg tablet 1 tab PO DAILY Qty: 84 4RF bupropion HCl [Wellbutrin XL] 150 mg tablet extended release 24 hr 150 mg PO QAM Qty: 30 1RF Rx Instructions: take one tablet once a day in the morning albuterol sulfate 90 mcg/actuation HFA aerosol inhaler 1 inh inhalation ONCE Qty: 6.7 0RF Discharge Instructions Instructions: Constipation (ED) Additional Instructions: Please make an effort to increase daily intake of water as well as fruits and vegetables. Recommend you initiate Metamucil once daily which is available [id number]. This will bulk up your stool and allow for more consistent transport stool. Return age-appropriate fever, persistent vomiting, worsening abdominal pain, or any other acute concerns. Medical Decision Making 21-year-old female presents from home with 5 days of crampy lower abdominal pain and constipation. States this is happened in the past. She has had nausea but no significant emesis, denies fever. She is well-appearing with normal vital signs. Referred for x-ray which reveals fecal material present;, no other significant or abnormal findings. Patient given an enema with soapsuds. She is observed with good stool output and subjective improvement. Will encourage daily fiber use. She is stable to discharge to home. HPI General Mode of arrival: ambulatory. Date/Time Provider Initiated Documentation: 06/23/22 10:27. Limitations to Documentation: no limitations. Information obtained by: patient. History of Present Illness 21 year old F presents to the emergency department with the chief complaint of Lower abdominal cramping and constipation, described as moderate, Quality is described as other (Cramping), and is localized to the abdomen. Patient reports no radiation. Patient started experiencing this day(s) and it has been intermittent. No relieving factors improve symptom(s), No exacerbating factors reported . Patient notes nausea/vomiting; denies fever/chills. Patient did receive the following treatments prior to arrival, none Related Data Home Medications Medication Instructions Recorded Confirmed desogestrel-ethinyl estradiol 0.1 1 tab PO DAILY #84 tabs 11/03/21 06/23/22 mg/0.125 mg/0.15 mg-25 mcg tablet (Caziant (28)) albuterol sulfate 90 mcg/actuation 1 inh inhalation ONCE #6.7 grams 03/31/22 06/23/22 aerosol inhaler bupropion HCl 150 mg 24 hr tablet, 150 mg PO QAM #30 tabs 04/20/22 06/23/22 extended release (Wellbutrin XL) Previous Rx's Medication Instructions Recorded desogestrel-ethinyl estradiol 0.1 1 tab PO DAILY #84 tabs 11/03/21 mg/0.125 mg/0.15 mg-25 mcg tablet (Caziant (28)) albuterol sulfate 90 mcg/actuation 1 inh inhalation ONCE #6.7 grams 03/31/22 aerosol inhaler bupropion HCl 150 mg 24 hr tablet, 150 mg PO QAM #30 tabs 04/20/22 extended release (Wellbutrin XL) Allergies Allergy/AdvReac Type Severity Reaction Status Date / Time Penicillins Allergy Unverified 06/23/22 10:40 General Stated Complaint: Abd Prob ALLY: 4 Review of Systems Narrative: No fever, chills. Regular menstrual periods last was 3 weeks ago. States she is not . 8 systems were reviewed and otherwise negative PFSH All Active Problems (Updated 06/23/22 @ 12:22 by Biju Matias MD) Nausea & vomiting (Acute) ADD (attention deficit disorder) (Chronic) ADHD Adult Self -Report - very positive for ADD. has h/o inattention throughout school years Uses contraception (Acute) OCPs until 02/2021. Liletta IUD for convenience Until 10/2021 but it was removed and OCPs to be started Oral contraception initial prescription (Acute) Bipolar disorder (Acute) Anxiety and depression (Chronic) Abdominal pain (Acute) Urinary tract infection (Acute) Constipation (Acute) Nausea and vomiting (Acute) Ovarian cyst (Acute) Gastritis (Acute) Trauma and stressor-related disorder (Acute) Medical History Elevated lipids (02/25/16) Encounter for IUD removal Penicillin allergy Smoker in home outside Wears glasses Surgical History Myringotomy w/ PE (pressure equalizing) tubes bilateral; needed f/u surgery for perforated tympanic membrane. Family History Mother Mental disorder anxiety/depression Father No problems noted. Other Substance abuse mat/pat sides Alcohol abuse mat/pat sides Essential hypertension pat uncle Heart disease pat GGF & MGF Hyperlipidemia PGF Myocardial infarction pat GGF Asthma mat/pat sides Social History Smoking/Tobacco Use Status: Current every day Tobacco Type: e-cigarettes and smokeless tobacco Second Hand Exposure: Yes Smoking risk assessment performed?: Yes Alcohol Intake: current Alcohol Intake frequency: a few times a week Drug use: Daily Substance use type: marijuana Adopted: No Foster care: No Household members: other Details: BF - C. J. 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 Pets and animals: Yes (1 cat) Pets and animals: cat(s) Current gender identity: female Seatbelt use: always Helmet use: Yes Fire extinguisher in home: Yes Carbon monox detector in home: Yes Firearms in home: No Do you feel safe at home: Yes Do you feel safe in your relationship?: Yes History History 1 Para Hx # Term Pregnancies Multiple births Hx # Pregnancies Ectopic pregnancies AB induced Hx Number of Living Children AB spontaneous Exam Narrative Exam Narrative: GEN: awake, alert, oriented 3. Pleasant, well groomed, interactive. HEAD: Normocephalic, atraumatic EYES: PERRL, EOMI NECK: Full ROM, no VANDANA, no menigismus CHEST/RESP: Nontender, clear to auscultation bilateral, no wheeze/rhonchi/rales CARDIOVASCULAR: RRR, no murmur, rub jamaal. 2+ Rad pulse bilateral ABDOMEN: Soft, nontender, no mass. +Bowel sounds EXT: Full ROM, no edema, no rash Neuro: Grossly normal neurologic exam, conversant, interactive. Psych: Speech fluent, thoughts congruent, affect normal Course Vital Signs Vital signs: Vital Signs Temperature 37.0 C 06/23/22 10:33 Pulse 90 06/23/22 10:33 Respiratory Rate 20 06/23/22 10:33 Blood Pressure 121/88 06/23/22 10:33 Pulse Oximetry 98 01/24/23 10:33 Temperature 37.0 C 06/23/22 10:33 Temperature Source Tympanic 06/23/22 10:33 Pulse 90 06/23/22 10:33 Respiratory Rate 20 06/23/22 10:33 Respiratory Effort 06/23/22 10:46 Blood Pressure 121/88 06/23/22 10:33 Blood Pressure Position Sitting 06/23/22 10:33 Pulse Oximetry 98 06/23/22 10:33 Oxygen Delivery Method Room Air 06/23/22 10:33 Oxygen Flow Rate 0 06/23/22 10:33 Pain Level 3 06/23/22 10:33 PAWSS Have you Been Recently Intoxicated or Drunk Within the Last 30 days?: No Have you Ever Experienced Previous Episodes of Alcohol Withdrawal?: No Have you ever Experienced Withdrawal Seizures?: No Have you ever Experienced Delirium Tremens(DT)s?: No Have you ever undergone Alcohol Rehabilitation Treatment (i.e, inpt ot outpatient treatment programs)?: No Have you ever Experienced Blackouts?: No Have you ever Combined Alcohol with other Downers within the last 90 days?: No Have you ever Combined Alcohol with any other Substance of Abuse during the last 90 days?: No Result: 0
[2022-06-23 11:15] LABS: Bilirubin Negative (Negative); Blood Negative (Negative); Clarity Clear (Clear); Glucose Negative (Negative); Ketones Negative (Negative); Leukocyte Esterase Negative (Negative); Nitrite Negative (Negative); Specific Gravity 1.025 (1.005-1.025); Urobilinogen 0.2 EU/dL (Up TO 0.2)
[2022-06-23 12:44] VITALS: BP 138/82; PULSE 56; RESP 16; TEMP 36.3; O2SAT 100
== END 2022-06-23 12:48 | disposition home or self-care (01) ==
PROVIDERS: Emergency Provider Emergency Medicine; PCP Nurse Practitioner Pediatrics
DX: K59.00 Constipation, unspecified (principal)
CPT/HCPCS: 81025; 99283; 74018; 81003; 99282

== ENCOUNTER 2022-09-07 02:16 | Outpatient (CLI) | payer MEDICAID, SELFPAY ==
[2022-09-07] MEDS: Albuterol HFA 18 GM 200 PUFF INH IH (16:14)
[2022-09-07] MEDS: Inhaler, Assist Device 1 EACH MC (16:15)
--- NOTE | 2022-09-08 12:30 | W.PFT ---
Date of service: 09/07/22 Time of Service: 14:51 Pulmonary Function Test Result Indications: Asthma Interpretation Spirometry: There is no airflow limitation. No significant bronchodilator response. There may be inspiratory loop blunting. Lung Volumes: Normal lung volumes Diffusion Capacity: Normal diffusion Airway Pressure: Normal airway resistance Impression Normal pulmonary function testing with the possibility of inspiratory loop blunting. Clinical Correlation therefore is recommended.
== END 2022-09-07 02:17 | disposition home or self-care (01) ==
LOC: RT 02:16
PROVIDERS: Visit Provider Nurse Practitioner Family
DX: J45.909 Unspecified asthma, uncomplicated (principal)
CPT/HCPCS: 94060; 94726; 94729

== ENCOUNTER 2023-04-20 07:40 | Emergency (ER) | payer MEDICAID, SELFPAY ==
[2023-04-20 07:43] VITALS: BP 135/100; PULSE 77; RESP 15; TEMP 36.5; O2SAT 100
[2023-04-20 08:07] LABS: Abs Immature Grans 0.06 10^3/uL (0.0-0.06); Absolute Basophil Count 0.04 10^3/uL (0.0-0.2); Absolute Eosinophil Count 0.02 10^3/uL (0.0-0.7); Absolute Lymphocyte Count 1.32 10^3/uL (1.2-3.4); Absolute Monocyte Count 0.52 10^3/uL (0.1-0.8); Absolute Neutrophil Count 10.34 10^3/uL (1.2-6.7); Basophils % 0.3; Eosinophils % 0.2; HCT 40.3 % (36.0-46.0); HGB 14.3 g/dL (11.2-15.7); Immature Grans % 0.5; Lymphocytes % 10.7; MCH 30.2 pg (27.0-33.0); MCHC 35.5 % (32.0-36.0); MCV 85 fL (80-95); MPV 8.7 fL (8.0-11.0); Monocytes % 4.2; Neutrophils % 84.1; Platelet Count 322 10^3/uL (130-400); RBC 4.73 10^6/uL (3.93-5.22); RDW 11.8 % (11.7-14.6); RDW-SD 36.2 fL
[2023-04-20] MEDS: ACETAMINOPHEN 1,000 MG/100 ML BTL 400 MG IVPB (08:08)
[2023-04-20] MEDS: Ondansetron 4 MG/2 ML VIAL IVP (08:08)
--- NOTE | 2023-04-20 08:43 | W.ED.GENAD ---
Discharge Plan Disposition Patient Disposition: Home Condition: Stable Discharge Details Clinical Impression: Nausea and vomiting during , Abdominal pain Primary Care Provider: Unknown,Unknown ED Provider: Ward Mtz Home Meds and New Rx's Prescriptions: New pyridoxine (vitamin B6) 25 mg tablet 25 mg PO TID PRN (Reason: nausea) Qty: 30 0RF Continued albuterol sulfate 90 mcg/actuation HFA aerosol inhaler 1 inh inhalation ONCE Qty: 6.7 0RF Discharge Instructions Instructions: Hyperemesis Gravidarum (ED) Additional Instructions: Please contact your DIRECTOR OF IT OPERATIONS to arrange follow-up. Return to the ER immediately for any worsening or new concerning symptoms. Referrals: [facility] [Provider Group] Medical Decision Making [phone] --22-year-old -0-1-0 at unknown dating, LMP 03/13/2023, here with 2 days of nausea and vomiting, not tolerating oral intake, now with associated diffuse abdominal pain. Plan to treat nausea and dehydration. IV established and ondansetron IV as well as acetaminophen IV given. I will give IV fluid bolus as well as Pepcid IV. Initial labs reviewed: Leukocytosis noted. No significant electrolyte abnormalities. Beta hCG 12,800. Patient has plan for elective termination with scheduled appointment. -- Labs reviewed mild leukocytosis noted. Beta hCG of 12,900. -- Patient reassessed and continues to have pain. I will give Dilaudid IV. [id number] bedside ultrasound was performed by me and no definitive IUP transabdominally. Plan for official first trimester ultrasound. 1231??ultrasound interpreted by radiology: 1. Single live intrauterine gestation as above. 2. heart rate cannot be obtained accurately at this stage. A follow-up examination in 1-2 weeks should be considered for documentation of the heart rate. 3. Findings were conveyed to the emergency department on 04/20/2023. Patient reassessed and continued having dry heaving. Plan to give droperidol IV. 1339 -- Patient reassessed and improved. Patient notes feeling much better and requesting discharge. Plan for discharge with outpatient follow-up. Disposition decision was made weighing the risks and benefits of hospitalization versus outpatient treatment, the risk for further decompensation, and the patient's wishes. The patient was stable and requested discharge. Prior to discharge, my usual and customary return precautions were reviewed with the patient - this included follow-up instructions and reason to return to the emergency department if condition worsens, does not improve as expected, or other new concerns arise. HPI General Mode of arrival: ambulatory. Date/Time Provider Initiated Documentation: 04/20/23 07:49. Limitations to Documentation: no limitations. Information obtained by: patient. HPI Narrative: 22-year-old female presents with chief complaint of vomiting. Patient notes last menstrual period was 03/13/2023. She states she has had nausea and vomiting over the past 2 days. She was concerned she was and took a test that was positive. Vomiting worse today with associated mid abdominal discomfort described as a strain. She also notes some straining of her back. She attributes the pain to excessive vomiting. No vaginal bleeding. No abnormal vaginal discharge. Related Data Home Medications Medication Instructions Recorded Confirmed albuterol sulfate 90 mcg/actuation 1 inh inhalation ONCE #6.7 grams 03/31/22 04/20/23 aerosol inhaler pyridoxine (vitamin B6) 25 mg 25 mg PO TID PRN nausea #30 tabs 04/20/23 tablet Previous Rx's Medication Instructions Recorded albuterol sulfate 90 mcg/actuation 1 inh inhalation ONCE #6.7 grams 03/31/22 aerosol inhaler pyridoxine (vitamin B6) 25 mg 25 mg PO TID PRN nausea #30 tabs 04/20/23 tablet Allergies Allergy/AdvReac Type Severity Reaction Status Date / Time Penicillins Allergy Unverified 04/20/23 07:47 General Stated Complaint: Abd Prob ALYL: 3 Review of Systems All systems reviewed & are unremarkable except as noted in HPI and below Constitutional Constitutional: Denies fever(s) Gastrointestinal Gastrointestinal: Reports as per HPI PFSH All Active Problems (Updated 04/20/23 @ 13:42 by Ward Mtz MD) Abdominal pain (Acute) Nausea and vomiting during (Acute) ADD (attention deficit disorder) (Chronic) ADHD Adult Self -Report - very positive for ADD. has h/o inattention throughout school years Uses contraception (Acute) OCPs until 02/2021. Liletta IUD for convenience Until 10/2021 but it was removed and OCPs to be started Oral contraception initial prescription (Acute) Bipolar disorder (Acute) Anxiety and depression (Chronic) Abdominal pain (Acute) Urinary tract infection (Acute) Constipation (Acute) Nausea and vomiting (Acute) Ovarian cyst (Acute) Gastritis (Acute) Trauma and stressor-related disorder (Acute) Medical History Encounter for IUD removal Elevated lipids (02/25/16) Penicillin allergy Wears glasses Smoker in home outside Surgical History Myringotomy w/ PE (pressure equalizing) tubes bilateral; needed f/u surgery for perforated tympanic membrane. Family History Mother Mental disorder anxiety/depression Father No problems noted. Other Substance abuse mat/pat sides Alcohol abuse mat/pat sides Essential hypertension pat uncle Heart disease pat GGF & MGF Hyperlipidemia PGF Myocardial infarction pat GGF Asthma mat/pat sides Social History Smoking/Tobacco Use Status: Current every day Tobacco Type: e-cigarettes and smokeless tobacco Second Hand Exposure: Yes Smoking risk assessment performed?: Yes Alcohol Intake: current Alcohol Intake frequency: a few times a week Drug use: Daily Substance use type: marijuana Adopted: No Foster care: No Household members: other Details: - C. J. 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 Pets and animals: Yes (1 cat) Pets and animals: cat(s) Current gender identity: female Seatbelt use: always Helmet use: Yes Fire extinguisher in home: Yes Carbon monox detector in home: Yes Firearms in home: No Do you feel safe at home: Yes Do you feel safe in your relationship?: Yes History History 1 Para Hx # Term Pregnancies Multiple births Hx # Pregnancies Ectopic pregnancies AB induced Hx Number of Living Children AB spontaneous Exam Const General: cooperative and uncomfortable Orientation: alert and awake HENMT Mouth: mucous membranes dry Eyes Conjunctivae: normal conjunctivae Sclera: normal sclerae Resp Auscultation: clear to auscultation bilaterally, no rales, no rhonchi and no wheezes Cardio Rate: regular rate and not tachycardic Rhythm: regular rhythm GI Palpation: soft, not firm, no guarding, no masses, not rigid and tender (diffuse, worse mid abd) Skin General skin exam: no rashes or lesions noted Neuro General: patient alert, patient awake and tone normal Extrem General: no edema Psych Appearance: grossly normal Mental Status: mental status grossly normal Course Vital Signs Vital signs: Vital Signs Temperature 36.5 C 04/20/23 07:43 Pulse 77 04/20/23 07:43 Respiratory Rate 15 04/20/23 07:43 Blood Pressure 135/100 H 04/20/23 07:43 Pulse Oximetry 100 04/20/23 07:43 Temperature 36.5 C 04/20/23 07:43 Temperature Source Oral 04/20/23 07:43 Pulse 77 04/20/23 07:43 Respiratory Rate 15 04/20/23 07:43 Respiratory Effort Normal 04/20/23 07:45 Blood Pressure 135/100 H 04/20/23 07:43 Blood Pressure Position Sitting 04/20/23 07:43 Pulse Oximetry 100 04/20/23 07:43 Oxygen Delivery Method Room Air 04/20/23 07:43 Oxygen Flow Rate 0 04/20/23 07:43 Pain Level 8 04/20/23 07:45 Lab/Test Results Lab/Test Results: Laboratory Tests Range/Units 04/20/23 07:57 WBC (4.4-10.8) 10^3/uL 12.30 H RBC (3.93-5.22) 10^6/uL 4.73 Hgb (11.2-15.7) g/dL 14.3 Hct (36.0-46.0) % 40.3 MCV (80-95) fL 85 MCH (27.0-33.0) pg 30.2 MCHC (32.0-36.0) % 35.5 RDW (11.7-14.6) % 11.8 Plt Count (130-400) 10^3/uL 322 MPV (8.0-11.0) fL 8.7 Immature Gran % 0.5 Neutrophils % 84.1 Lymphocytes % 10.7 Monocytes % 4.2 Eosinophils % 0.2 Basophils % 0.3 Nucleated RBC % (0.0-0.3) % 0.0 Absolute Neutrophils (1.2-6.7) 10^3/uL 10.34 H Absolute Lymphocytes (1.2-3.4) 10^3/uL 1.32 Absolute Monocytes (0.1-0.8) 10^3/uL 0.52 Absolute Eosinophils (0.0-0.7) 10^3/uL 0.02 Absolute Basophils (0.0-0.2) 10^3/uL 0.04
[2023-04-20 08:49] LABS: ALT 20 U/L (14-59); AST 12 U/L (15-37); Albumin 4.5 g/dL (3.4-5.0); Alkaline Phosphatase 60 U/L (46-116); Anion Gap 9.5 mmol/L (3-11); BUN 10 mg/dL (7-18); Bilirubin, Total 0.7 mg/dL (0.2-1.0); CO2 26.5 mmol/L (21.0-32.0); CREATININE 0.7 mg/dL (0.55-1.02); Chloride 100 mmol/L (98-107); Glucose 122 mg/dL (74-106); Magnesium 1.8 mg/dL (1.8-2.4); Potassium 3.5 mmol/L (3.5-5.1); Sodium 136 mmol/L (136-145); Total Protein 8.5 g/dL (6.4-8.2)
[2023-04-20 08:50] LABS: HCG Quant, Pregnancy 12894 mIU/mL (1-3)
[2023-04-20] MEDS: Lactated Ringers 1,000 ML 1000 ML IV (08:57)
[2023-04-20 08:58] LABS: Lipase 32 U/L (16-77)
[2023-04-20] MEDS: Famotidine 20 MG/2 ML VIAL IVP (09:03)
--- NOTE | 2023-04-20 10:02 | DI.US_ITS ---
Exam(s) US OB 1ST TRIMESTER EXAM: US OB 1ST TRIMESTER CLINICAL HISTORY: abd pain, hcg. COMPARISON: No exams were available for comparison TECHNIQUE: Transabdominal Transvaginal first trimester obstetrical ultrasound performed. FINDINGS: Sonographic images demonstrate a single intrauterine gestation. A yolk sac and pole are seen. Sonographically assessed gestational age based upon crown-rump length of 0.24 cm is: 5 weeks 5 days Estimated date of delivery based on this ultrasound is: 12/16/2023 heart rate motion could not be adequately obtained at this time. There is a small amount of free fluid in the pelvis. There is a small subchorionic hemorrhage. Both ovaries appear sonographically normal. There is a 1.8 x 1.9 x 2 cm corpus luteal cyst on the lef t ovary. Pelvic Measurments Uterus: 7.6 x 4.0 x 4.9 cm Rt Ovary: 2.5 x 2.5 x 1.8 cm Lt Ovary: 3.8 x 2.0 x 3.5 cm IMPRESSION: 1. Single live intrauterine gestation as above. 2. heart rate cannot be obtained accurately at this stage. A follow-up examination in 1-2 week s should be considered for documentation of the heart rate. 3. Findings were conveyed to the emergency department on 04/20/2023. Unexpected findings DATA REPOSITORY:
[2023-04-20] MEDS: HYDROmorphone 2 MG/ML SYR 1 MG IVP (10:08)
[2023-04-20] MEDS: DEXTROSE 5%-0.45% SALINE 1,000 ML 150 ML IV (11:20)
[2023-04-20] MEDS: Droperidol 5 MG/2 ML VIAL 2.5 MG IVP (12:55)
[2023-04-20 13:56] VITALS: BP 114/65; PULSE 84; RESP 15; TEMP 36.5; O2SAT 98
== END 2023-04-20 13:58 | disposition home or self-care (01) ==
PROVIDERS: Emergency Provider Student in an Organized Health Care Education/Training Program
DX: R10.9 Unspecified abdominal pain (principal); O21.0 Mild hyperemesis gravidarum; O99.891 Other specified diseases and conditions complicating pregnancy; Z88.0 Allergy status to penicillin
CPT/HCPCS: 36415; 80053; 83690; 96361; 96374; 96375; 99285; 76801; 83735; 84702; 85025; 99284; J0131; J1170; J1790; J2405

== ENCOUNTER 2023-05-26 20:40 | Outpatient (REF) | payer MEDICAID, SELFPAY ==
[2023-05-26 20:52] LABS: Abs Immature Grans 0.03 10^3/uL (0.0-0.06); Absolute Basophil Count 0.04 10^3/uL (0.0-0.2); Absolute Eosinophil Count 0.07 10^3/uL (0.0-0.7); Absolute Monocyte Count 0.74 10^3/uL (0.1-0.8); Absolute Neutrophil Count 7.18 10^3/uL (1.2-6.7); Basophils % 0.4; Eosinophils % 0.7; HCT 38.8 % (36.0-46.0); HGB 13.3 g/dL (11.2-15.7); Immature Grans % 0.3; Lymphocytes % 24.4; MCH 31.1 pg (27.0-33.0); MCHC 34.3 % (32.0-36.0); MCV 91 fL (80-95); MPV 9.2 fL (8.0-11.0); Monocytes % 6.9; Neutrophils % 67.3; Platelet Count 296 10^3/uL (130-400); RBC 4.28 10^6/uL (3.93-5.22); RDW 12.5 % (11.7-14.6); RDW-SD 41.2 fL; WBC 10.66 10^3/uL (4.4-10.8)
[2023-05-26 21:14] LABS: ALT 18 U/L (14-59); AST 15 U/L (15-37); Albumin 3.9 g/dL (3.4-5.0); Alkaline Phosphatase 39 U/L (46-116); Amylase 46 U/L (25-115); Anion Gap 7.1 mmol/L (3-11); BUN 9 mg/dL (7-18); Bilirubin, Total 0.2 mg/dL (0.2-1.0); CO2 28.9 mmol/L (21.0-32.0); CREATININE 0.7 mg/dL (0.55-1.02); Calcium 9.6 mg/dL (8.5-10.1); Chloride 105 mmol/L (98-107); Glucose 77 mg/dL (74-106); Lipase 43 U/L (16-77); Potassium 4.2 mmol/L (3.5-5.1); Sodium 141 mmol/L (136-145); TSH 1.14 uIU/mL (0.36-3.74); Total Protein 6.8 g/dL (6.4-8.2)
[2023-06-01 12:33] LABS: IgA 112 mg/dL (85-499); Interpretation (See Note); Tissue Transglutaminase IgA <4.0 CU (<20.0)
== END 2023-05-26 20:41 | disposition home or self-care (01) ==
LOC: NCHCN 20:40
PROVIDERS: Visit Provider Nurse Practitioner Family
DX: K59.09 Other constipation (principal); R11.2 Nausea with vomiting, unspecified
CPT/HCPCS: 80053; 82784; 83516; 83690; 82150; 84443; 85025

== ENCOUNTER 2023-08-14 02:20 | Emergency (ER) | payer MEDICAID, SELFPAY ==
[2023-08-14] VITALS (73 sets, daily range): BP systolic 94–119; BP diastolic 33–69; PULSE 57–138; RESP 17–96; TEMP 37.1; O2SAT 92–98
--- NOTE | 2023-08-14 02:32 | ED.GENADUL_ITS ---
Discharge Plan Discharge Details Chief Complaint: GenMedical Primary Care Provider: Unknown,Unknown ED Provider: Jarrell Dixon Home Meds and New Rx's Prescriptions: No Action albuterol sulfate 90 mcg/actuation HFA aerosol inhaler 1 inh inhalation ONCE Qty: 6.7 0RF pyridoxine (vitamin B6) 25 mg tablet 25 mg PO TID PRN (Reason: nausea) Qty: 30 0RF HPI General Date/Time Provider Initiated Documentation: 08/14/23 02:24 . HPI Narrative: The patient is a 23-year-old female, with a past medical history reported by her father of bipolar disorder, who presents to the emergency department this evening after police were called for an intoxicated patient who was screaming in the bathroom at a home she was visiting. According to the sober adult at the home at the time, the patient had been drinking alcohol. They were unsure if the patient had been using any other substances, but they suggested that the patient might have been taking psychedelic medications. The patient was initially agitated on scene and was combative with EMS and the police. The patient arrives here in the emergency room somnolent but arousable to voice. When she is aroused she becomes quite agitated. She can provide relatively little history over the course of the evening. Related Data Home Medications Medication Instructions Recorded Confirmed albuterol sulfate 90 mcg/actuation 1 inh inhalation ONCE #6.7 grams 03/31/22 04/20/23 aerosol inhaler pyridoxine (vitamin B6) 25 mg 25 mg PO TID PRN nausea #30 tabs 04/20/23 tablet Previous Rx's Medication Instructions Recorded albuterol sulfate 90 mcg/actuation 1 inh inhalation ONCE #6.7 grams 03/31/22 aerosol inhaler pyridoxine (vitamin B6) 25 mg 25 mg PO TID PRN nausea #30 tabs 04/20/23 tablet Allergies Allergy/AdvReac Type Severity Reaction Status Date / Time Penicillins Allergy Other (See Unverified 08/14/23 02:31 Comment) General Stated Complaint: GenMedical ALLY: 3 Exam Const Other: Somnolent but arousable to voice and tactile stimulation. Resp Other: Auscultated breath sounds are clear bilaterally with good air exchange. There is no respiratory depression or increased work of breathing at this time Cardio Other: There is a regular rate and rhythm present without any murmurs, rubs, or gallops. GI Other: The abdomen is soft, and has normal bowel sounds. Skin Other: [place] warm and dry without any obvious wounds or traumatic injuries Neuro Other: The patient is somnolent and has slurred speech indicative of alcohol intoxication. The patient spontaneously moves all 4 extremities without difficulty. The patient is responsive to tactile and verbal stimulation. Course Vital Signs Vital signs: Vital Signs Temperature 37.1 C 08/14/23 02:16 Pulse 81 08/14/23 02:16 Respiratory Rate 96 H 08/14/23 02:16 Blood Pressure 118/69 08/14/23 02:16 Pulse Oximetry 95 08/14/23 02:16 Temperature 37.1 C 08/14/23 02:16 Temperature Source Temporal Artery Scan 08/14/23 02:16 Pulse 81 08/14/23 02:16 Respiratory Rate 18 08/14/23 02:19 Respiratory Effort Normal 08/14/23 02:19 Respiratory Depth Normal 08/14/23 02:19 Respiratory Pattern Normal 08/14/23 02:19 Blood Pressure 118/69 08/14/23 02:16 Pulse Oximetry 95 08/14/23 02:16 Oxygen Delivery Method Room Air 08/14/23 02:16 Oxygen Flow Rate 0 08/14/23 02:16 Pain Level 0 08/14/23 02:16 Medical Decision Making Medical Records Medical records narrative: The patient was seen and examined. She seems to be at least intoxicated with alcohol, as she has slurred speech, impaired coordination, and alcoholic halitosis. The patient was seen in late March of last year and at that time was found to be early in . It is unclear what her current status is. The patient's father came to the emergency room and provided the history that the patient has bipolar disorder, and is supposed to be taking a medication, but he is unsure if she is taking it or not. The father tells me that his daughter lives with him and this behavior is unusual and unexpected for her. The patient will be observed for improved sobriety here in the emergency room with cardiac and oxygen saturation monitoring. The patient will have basic labs and a blood alcohol level obtained. If the patient consents and provides urine, that can be sent for urine drug screening. If the patient has increased sobriety here in the emergency room, and has no significant laboratory abnormalities, she could potentially be discharged to her father when she is more arousable. Case signed out to Dr. Lomax at 7:20 AM with plan for observation for increased sobreity. Quality:SDOH Health Related Social Needs: No Data to Display PFSH All Active Problems (Updated 05/21/23 @ 00:04 by MORE MASON) ADD (attention deficit disorder) (Chronic) ADHD Adult Self -Report - very positive for ADD. has h/o inattention throughout school years Uses contraception (Acute) OCPs until 02/2021. Liletta IUD for convenience Until 10/2021 but it was removed and OCPs to be started Oral contraception initial prescription (Acute) Bipolar disorder (Acute) Anxiety and depression (Chronic) Abdominal pain (Acute) Urinary tract infection (Acute) Constipation (Acute) Nausea and vomiting (Acute) Ovarian cyst (Acute) Gastritis (Acute) Trauma and stressor-related disorder (Acute) Medical History Encounter for IUD removal Elevated lipids (02/25/16) Penicillin allergy Wears glasses Smoker in home outside Surgical History Myringotomy w/ PE (pressure equalizing) tubes bilateral; needed f/u surgery for perforated tympanic membrane. Family History Mother Mental disorder anxiety/depression Father No problems noted. 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 Pets and animals: Yes (1 cat) Pets and animals: cat(s) Current gender identity: female Seatbelt use: always Helmet use: Yes Fire extinguisher in home: Yes Carbon monox detector in home: Yes Firearms in home: No Do you feel safe at home: Yes Do you feel safe in your relationship?: Yes History History 1 Para Hx # Term Pregnancies Multiple births Hx # Pregnancies Ectopic pregnancies AB induced Hx Number of Living Children AB spontaneous
[2023-08-14 02:39] LABS: HCT 40.9 % (36.0-46.0); HGB 14.3 g/dL (11.2-15.7); MCH 30.7 pg (27.0-33.0); MCV 88 fL (80-95); MPV 8.8 fL (8.0-11.0); Platelet Count 283 10^3/uL (130-400); RBC 4.66 10^6/uL (3.93-5.22); RDW 11.8 % (11.7-14.6); RDW-SD 37.6 fL; WBC 13.63 10^3/uL (4.4-10.8)
[2023-08-14 02:50] LABS: Anion Gap 11.9 mmol/L (3-11); BUN 12 mg/dL (7-18); CO2 26.1 mmol/L (21.0-32.0); CREATININE 0.8 mg/dL (0.55-1.02); Calcium 8.8 mg/dL (8.5-10.1); Chloride 109 mmol/L (98-107); ETHANOL BLOOD 240.8 mg/dL (<10); Estimated GFR 107.44 (mL/min/1.73m2); Glucose 109 mg/dL (74-106); Potassium 3.4 mmol/L (3.5-5.1); Sodium 147 mmol/L (136-145)
[2023-08-14] MEDS: Metoclopramide 10 MG/2 ML VIAL IVP (03:02)
--- NOTE | 2023-08-14 03:14 | NUR.NOTE ---
0300 PT became combative and tried to get out of bed several times. ED MD notified. Nursing Note:
[2023-08-14 03:37] LABS: HCG Qual (Serum) Negative
[2023-08-14] MEDS: Haloperidol 5 MG/ML VIAL (04:34)
[2023-08-14] MEDS: diphenhydrAMINE 50 MG/ML VIAL IVP (04:47)
[2023-08-14] MEDS: LORazepam 2 MG/ML VIAL IVP (04:48)
--- NOTE | 2023-08-14 04:55 | NUR.NOTE ---
At 0425 PT became combative with staff and was trying to get out of bed. PT attempted to bite staff. ED MD was notified Nursing Note:
[2023-08-14] MEDS: Normal Saline 1,000 ML 1000 ML IV (05:26)
--- NOTE | 2023-08-14 07:55 | W.EDPROG ---
Date of service: 08/14/23 Time of Service: 07:55 Medical Decision Making Patient signed out to me pending patient being sober enough to go home with father. Patient currently sleeping, arouses to voice, will continue to monitor until she is able to ambulate and safe to go home with her father. patient ambulating with normal gait and has no acute complaints requesting d/c, has no si/hi and is clinically sober, advised to f/u with pcp and limit alcohol use, return precautions given Quality:SDOH Health Related Social Needs: No Data to Display Sign Out Sign Out Data: Sign Out Comment: Case signed out to Dr. Lomax at 7:20 AM with plan for observation for increased sobreity. Last updated by Jarrell Dixon MD at 08/14/23 07:19 Discharge Plan Disposition Patient Disposition: Home Condition: Stable Discharge Details Clinical Impression: Alcohol intoxication Primary Care Provider: Unknown,Unknown ED Provider: Willam Lomax Home Meds and New Rx's Prescriptions: Continued albuterol sulfate 90 mcg/actuation HFA aerosol inhaler 1 inh inhalation ONCE Qty: 6.7 0RF pyridoxine (vitamin B6) 25 mg tablet 25 mg PO TID PRN (Reason: nausea) Qty: 30 0RF Discharge Instructions Instructions: Alcohol Intoxication (ED) Additional Instructions: Try to limit alcohol to 1-2 drinks Follow-up with your primary care provider as needed You can always return to the emergency department if you feel significantly ill or feel you are having a medical emergency.
[2023-08-14 09:33] LABS: *AMPHETAMINES SCREEN URINE Negative (Negative); *BARBITURATES SCREEN URINE Negative (Negative); *BENZODIAZEPINES SCREEN URINE Negative (Negative); Cannabinoids THC Positive (Negative); Cocaine Screen,Urine Negative (Negative); METHADONE URINE SCREEN Negative (Negative); OPIATES URINE SCREEN Negative (Negative)
[2023-08-14 09:35] LABS: Tricyclic Antidepressants Negative (Negative)
== END 2023-08-14 09:23 | disposition home or self-care (01) ==
PROVIDERS: Emergency Medicine Emergency Medical Services; Emergency Provider Emergency Medicine
DX: F10.120 Alcohol abuse with intoxication, uncomplicated (principal); F31.9 Bipolar disorder, unspecified; Y90.8 Blood alcohol level of 240 mg/100 ml or more
CPT/HCPCS: 00123; 80048; 80307; 85027; 96361; 96374; 99284; 80320; 84703; J1200; J1630; J2060; J2765

== ENCOUNTER 2024-04-29 14:02 | Emergency (ER) | payer SELFPAY ==
[2024-04-29 14:06] VITALS: BP 135/88; PULSE 82; RESP 16; TEMP 36.9; O2SAT 98
[2024-04-29] MEDS: Ondansetron 4 MG/2 ML VIAL IVP (14:25)
[2024-04-29] MEDS: Famotidine 20 MG/2 ML VIAL 40 MG IVP (14:25)
[2024-04-29 14:29] LABS: Abs Immature Grans 0.04 10^3/uL (0.0-0.06); Absolute Basophil Count 0.02 10^3/uL (0.0-0.2); Absolute Lymphocyte Count 1.06 10^3/uL (1.2-3.4); Absolute Monocyte Count 0.31 10^3/uL (0.1-0.8); Absolute Neutrophil Count 10.94 10^3/uL (1.2-6.7); Basophils % 0.2 %; HCT 40.7 % (36.0-46.0); HGB 14.8 g/dL (11.2-15.7); Immature Grans % 0.3 %; Lymphocytes % 8.6 %; MCH 31.2 pg (27.0-33.0); MCHC 36.4 % (32.0-36.0); MCV 86 fL (80-95); MPV 8.8 fL (8.0-11.0); Monocytes % 2.5 %; Neutrophils % 88.4 %; Platelet Count 334 10^3/uL (130-400); RBC 4.75 10^6/uL (3.93-5.22); RDW 11.7 % (11.7-14.6); RDW-SD 36.4 fL; WBC 12.37 10^3/uL (4.4-10.8)
--- NOTE | 2024-04-29 14:42 | W.ED.GENAD ---
Discharge Plan Disposition Patient Disposition: Home Discharge Details Clinical Impression: Nausea & vomiting Primary Care Provider: Gina Babcock ED Provider: Felix Dodson Home Meds and New Rx's Prescriptions: Continued albuterol sulfate 90 mcg/actuation HFA aerosol inhaler 1 inh inhalation ONCE Qty: 6.7 0RF omeprazole 20 mg capsule,delayed release(DR/EC) 20 mg PO DAILY Discharge Instructions Additional Instructions: You are seen in the emergency department for nausea and vomiting. Your blood work shows that your kidneys are working well. Please return to the emergency department if you pass out or if you begin vomiting and it does not stop. Please take these nausea meds as needed. Please follow-up as needed next week with your primary care provider. Discharge Data Discharge Date/Time-TO BE ENTERED AT DEPARTURE: 04/29/24 15:52 HPI General Date/Time Provider Initiated Documentation: 04/29/24 14:04. HPI Narrative: MDM This is an overall very well-appearing normothermic and not tachycardic 23-year-old female with nausea and vomiting following ethanol use most consistent with mild toxic effects of ethanol. No pain out of proportion to suggest necrotizing soft tissue infection. No right lower quadrant tenderness to suggest appendicitis. No rash to abdomen to suggest zoster. No left lower quadrant tenderness to suggest diverticulitis and no diarrhea. Patient does have a mildly elevated BMI and as result we will obtain a lipase to ensure that she does not have pancreatitis though she is not a daily drinker so my suspicion is low for pancreatitis. No dysuria nor frequency to suggest UTI so I did not send urinalysis. No history of nephrolithiasis and no lateralizing pain so my suspicion is low for ureterolithiasis. No abnormal vaginal discharge to suggest sexually transmitted infection. No past surgical history to her abdomen so I am not suspicious for small bowel obstruction. No lower quadrant tenderness to suggest increased risk for ovarian torsion so I did not feel that the patient required a transvaginal ultrasound. Given no hematemesis I am not suspicious for upper GI bleed. She has moist mucous membranes so we will attempt oral rehydration given current IV fluid shortage following labs. 2:42 PM CBC shows leukocytosis improved. Prior. No anemia. No thrombocytopenia. 3:09 PM Negative ethanol level. Negative hCG. Comprehensive metabolic panel showing mild anion gap mild hyperglycemia but normal bicarbonate??not consistent with DKA. No GABRIELA. Normal reassuring lipase. Will complete p.o. trial. 3:41 PM Patient tolerated p.o. in the ED. She felt improved. She has not vomited in the ED. She and I discussed that she should return to emergency department if she developed recurrent vomiting that did not stop or if she passed out. I wrote her for short course of ODT ondansetron. She understood her return indications and was discharged with empiric trial of expectant outpatient management. HPI This is a previously healthy 23-year-old female up-to-date with immunizations with a history of IBS and GERD arrived to the emergency department via private vehicle in the setting of nausea and vomiting. Patient reports that she drank 3 shots of vodka yesterday and began vomiting at approximately 3 AM. She is vomited an unknown number of times. She denies hematemesis. She has not taken any falls. She denies dysuria history of nephrolithiasis and any abnormal vaginal discharge. She supposed to take omeprazole. She has not had any surgeries in the past to her abdomen. She has not been able to eat anything today. Exam General: Well-appearing in no acute distress speaking in complete sentences. Head: Normocephalic, atraumatic. Eye: Extraocular eye movements intact. No conjunctival injection. No scleral icterus. Ear, nose, mouth, throat: Grossly normal inspection. Normal voice, handling secretions normally. Neck: Trachea midline. Cardiovascular: Well-perfused distal extremities. Regular rate and rhythm Respiratory: Nonlabored respiration. Clear lungs bilaterally Gastrointestinal: Nondistended abdomen. Soft nontender. No rebound. No guarding. Musculoskeletal: No edema. Moving all 4 extremities spontaneously. Skin: Normal for age and race, grossly normal temperature and turgor. No acute rash. Neurologic: Alert and appropriate, no apparent acute deficits. Psychiatric: Mood and manner are appropriate. Grooming and personal hygiene are appropriate. Related Data Home Medications ?Medication ?Instructions ?Recorded ?Confirmed albuterol sulfate 90 mcg/actuation 1 inh inhalation ONCE #6.7 grams 03/31/22 04/29/24 aerosol inhaler omeprazole 20 mg capsule,delayed 20 mg PO DAILY 04/29/24 04/29/24 release Previous Rx's ?Medication ?Instructions ?Recorded albuterol sulfate 90 mcg/actuation 1 inh inhalation ONCE #6.7 grams 03/31/22 aerosol inhaler Allergies Allergy/AdvReac Type Severity Reaction Status Date / Time Penicillins Allergy Other (See Unverified 04/29/24 14:08 Comment) General Stated Complaint: [facility] ALLY: 3 Course Vital Signs Vital signs: Vital Signs Temperature 36.9 C 04/29/24 14:06 Pulse 82 04/29/24 14:06 Respiratory Rate 16 04/29/24 14:06 Blood Pressure 135/88 04/29/24 14:06 Pulse Oximetry 98 04/29/24 14:06 Temperature 36.9 C 04/29/24 14:06 Temperature Source Oral 04/29/24 14:06 Pulse 82 04/29/24 14:06 Respiratory Rate 16 04/29/24 14:06 Blood Pressure 135/88 04/29/24 14:06 Blood Pressure Position Sitting 04/29/24 14:06 Pulse Oximetry 98 04/29/24 14:06 Oxygen Delivery Method Room Air 04/29/24 14:06 Oxygen Flow Rate 0 04/29/24 14:06 Pain Level 7 04/29/24 14:06 Lab/Test Results Lab/Test Results: Laboratory Tests Range/Units 04/29/24 14:20 WBC (4.4-10.8) 10^3/uL 12.37 H RBC (3.93-5.22) 10^6/uL 4.75 Hgb (11.2-15.7) g/dL 14.8 Hct (36.0-46.0) % 40.7 MCV (80-95) fL 86 MCH (27.0-33.0) pg 31.2 MCHC (32.0-36.0) % 36.4 H RDW (11.7-14.6) % 11.7 Plt Count (130-400) 10^3/uL 334 MPV (8.0-11.0) fL 8.8 Immature Gran % % 0.3 Neutrophils % % 88.4 Lymphocytes % % 8.6 Monocytes % % 2.5 Eosinophils % % 0.0 Basophils % % 0.2 Nucleated RBC % (0.0-0.3) % 0.0 Absolute Neutrophils (1.2-6.7) 10^3/uL 10.94 H Absolute Lymphocytes (1.2-3.4) 10^3/uL 1.06 L Absolute Monocytes (0.1-0.8) 10^3/uL 0.31 Absolute Eosinophils (0.0-0.7) 10^3/uL 0.00 Absolute Basophils (0.0-0.2) 10^3/uL 0.02 Medical Decision Making Quality:SDOH Health Related Social Needs: No Data to Display PFSH All Active Problems (Updated 04/29/24 @ 15:42 by Felix Dodson MD) Nausea & vomiting (Acute) ADD (attention deficit disorder) (Chronic) ADHD Adult Self -Report - very positive for ADD. has h/o inattention throughout school years Uses contraception (Acute) OCPs until 02/2021. Liletta IUD for convenience Until 10/2021 but it was removed and OCPs to be started Oral contraception initial prescription (Acute) Bipolar disorder (Acute) Anxiety and depression (Chronic) Abdominal pain (Acute) Urinary tract infection (Acute) Constipation (Acute) Nausea and vomiting (Acute) Ovarian cyst (Acute) Gastritis (Acute) Trauma and stressor-related disorder (Acute) Medical History Encounter for IUD removal Elevated lipids (02/25/16) Penicillin allergy Wears glasses Smoker in home outside Surgical History Myringotomy w/ PE (pressure equalizing) tubes bilateral; needed f/u surgery for perforated tympanic membrane. Family History Mother Mental disorder anxiety/depression Father No problems noted. Other Substance abuse mat/pat sides Alcohol abuse mat/pat sides Essential hypertension pat uncle Heart disease pat GGF & MGF Hyperlipidemia PGF Myocardial infarction pat GGF Asthma mat/pat sides Social History Smoking/Tobacco Use Status: Unknown Second Hand Exposure: Yes Smoking risk assessment performed?: Yes Alcohol Intake: current Alcohol Intake frequency: a few times a week Drug use: Daily Substance use type: marijuana Adopted: No Foster care: No Household members: other Details: BF - C. J. 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 Pets and animals: Yes (1 cat) Pets and animals: cat(s) Current gender identity: female Seatbelt use: always Helmet use: Yes Fire extinguisher in home: Yes Carbon monox detector in home: Yes Firearms in home: No Do you feel safe at home: Yes Do you feel safe in your relationship?: Yes History History 1 Para Hx # Term Pregnancies Multiple births Hx # Pregnancies Ectopic pregnancies AB induced Hx Number of Living Children AB spontaneous
[2024-04-29 14:45] LABS: HCG Qual (Serum) Negative
[2024-04-29 14:50] LABS: ALT 21 U/L (14-59); AST 15 U/L (15-37); Albumin 4.2 g/dL (3.4-5.0); Alkaline Phosphatase 57 U/L (46-116); Anion Gap 15.6 mmol/L (3-11); BUN 10 mg/dL (7-18); Bilirubin, Total 0.53 mg/dL (0.2-1.0); CO2 25.4 mmol/L (21.0-32.0); CREATININE 0.9 mg/dL (0.55-1.02); Chloride 101 mmol/L (98-107); Estimated GFR 93.28 (mL/min/1.73m2); Glucose 113 mg/dL (74-106); Lipase 32 U/L (<78); Potassium 3.6 mmol/L (3.5-5.1); Sodium 142 mmol/L (136-145); Total Protein 8.2 g/dL (6.4-8.2)
[2024-04-29 15:00] LABS: Calcium 9.6 mg/dL (8.5-10.1)
[2024-04-29 15:02] LABS: ETHANOL BLOOD < 3.0 mg/dL (<10)
[2024-04-29 15:19] VITALS: RESP 16; O2SAT 98
[2024-04-29 15:26] VITALS: RESP 14; O2SAT 98
[2024-04-29] MEDS: Ondansetron O.D.T. 4 MG TABEF, 3 TABS/BTL PO (15:51)
--- OUTSIDE RECORDS SUMMARY | 2024-04-29 15:54 | XMS_ITS | Clinical Summary ---
Author Organization [facility] Address [address] [place] [address] Care Team Providers Care Lieutenant Governor Name Role Phone Felix Smith MD Primary Care Provider [phone] Allergies Active Allergy Reactions Criticality Noted Date Comments Amoxapine 04/03/2010 Amoxicillin-Pot Clavulanate 04/03/20 10 Cefprozil 04/03/2010 Medications montelukast (SINGULAIR) 4 mg chewable tablet Take 4 mg by mouth at bedtime. Active LEVALBUTEROL TARTRATE (XOPENEX HFA INHL) Inhale as directed. Active fluticasone (FLOVENT HFA) 44 mcg/Actuation inhaler Inhale 2 Puffs as directed 2 times daily. Active Active Problems Problem Noted Date Diagnosed Date Asthma Heart murmur Overview (04/03/2010): Innocent Social History Tobacco Use Types Packs/Day Years Used Date Smoking Tobacco: Never Assessed Comments Unknown Sex and Gender Information Value Date Recorded Sex Assigned at Not on file Legal Sex Female 18:30 EST Gender Identity Not on file Sexual Orientation Not on file Plan of Treatment Health Maintenance Due Date Last Done Comments Hepatitis C Screen 2002 Hepatitis B Vaccine (1 of 3 - 19+ 3-dose series) 07/11 COVID-19 Vaccine ( - 2023- season) 2024 Care Teams Lieutenant Governor Relationship Specialty Start Date End Date Felix Smith MD [address] [facility] [place] [place] [id number] [facility] - General 01/17/10
--- OUTSIDE RECORDS SUMMARY | 2024-04-29 15:54 | XMS_ITS | Encounter Summary ---
Author Organization [facility] Address [address] [place] [address] Care Team Providers Care First Aid Trainer Name Role Phone Unavailable Primary Care Provider Unavailabl e Encounter Details Date Type Department Care Team (Latest Contact Info) Description 08/04/2005 15:23 EST Hospital Encounter [facility] [address] [place] [address] Gwendolyn Nur MD Discharge Disposition: Auto Discharge Social History Tobacco Use Types Packs/Day Years Used Date Smoking Tobacco: Never Assessed Comments Unknown Sex and Gender Information Value Date Recorded Sex Assigned at Not on file Legal Sex Female 18:30 EST Gender Identity Not on file Sexual Orientation Not on file documented as of this encounter Discharge Disposition Disposition Code Departure Means Destination Auto Discharge documented in this encounter Plan of Treatment Not on file documented as of this encounter Visit Diagnoses Not on filedocumented in this encounter
--- OUTSIDE RECORDS SUMMARY | 2024-04-29 15:54 | XMS_ITS | Encounter Summary ---
Author Organization [facility] Address [address] [place] [address] Care Team Providers Care Package Clerk Name Role Phone Felix Smith MD Primary Care Provider [phone] Encounter Details Date Type Department Care Team (Late st Contact Info) Description 04/03/2010 Abstract Used for ABSTRACTING Data [phone] Felix Smith MD [address] [facility] [id number] Social History Tobacco Use Types Packs/Day Years [...] Diagnoses Not on filedocumented in this encounter Historical Medications * This list may reflect changes made after this encounter. fluticasone (FLOVENT HFA) 44 mcg/Actuation inhaler Inhale 2 Puffs as directed 2 times daily. LEVALBUTEROL TARTRATE (XOPENEX HFA INHL) Inhale as directed. montelukast (SINGULAIR) 4 mg chewable tablet Take 4 mg by mouth at bedtime. added in this encounter Care Teams Package Clerk Relationship Specialty Start Date End Date Felix Smith MD [address] [facility] [place] [address] PCP - General 01/17/10 documented as of this encounter
--- OUTSIDE RECORDS SUMMARY | 2024-04-29 15:54 | XMS_ITS | Encounter Summary ---
Author Organization [facility] Address [address] [place] [address] Care Team Providers Care Roustabout Supervisor Name Role Phone Felix Smith MD Primary Care Provider [phone] Encounter Details Date Type Department Care Team (Late st Contact Info) Description 10/26/[address] [facility] Radiology Results [address] [place] [id number] Melissa Garza MD [address] [place] [phone] Social History Tobacco Use Types Packs/Day Years Used Date Smoking Tobacco: Never Assessed Comments Unknown Sex and Gender Information Value Date Recorded Sex Assigned at Not on file Legal Sex Female 18:30 EST Gender Identity Not on file Sexual Orientation Not on file documented as of this encounter Plan of Treatment Not on file documented as of this encounter Procedures Procedure Name Priority Date/Time Associated Diagnosis Comments XR ANKLE LEFT 3 OR MORE VIEWS 10/26/2015 20:25 EDT documented in this encounter Results * XR ANKLE LEFT 3 OR MORE VIEWS (10/26/2015 20:25 EDT) Anatomical Region Laterality Modality Lower Extremities, Ankle Left Other 10/26/2015 20:2 5 EDT Narrative 10/27/2015 8:[address] [address] Diagnostic Imaging Report Signed Patient Name:JODIE DWYER ? Date of :2000 ? MR Number:[id number] Age:15 ?Sex:F Category: CR ? Date of Exam:10/26/15 Procedure: CR: Ankle, LT; 3+ views ? Ordering Physician: Melissa Garza MD CC: Optional Provider Melissa Garza MD LEFT ANKLE The patient has a history of injury. Four views are submitted with no prior left ankle series currently available for comparison. ??No significant bone, joint or surrounding soft tissue abnormality is identified. ??If signs or symptoms persist, a close interval follow-up study is advised. Dictated by: Mendoza Apodaca MD ? D/ Transcribed by: EDMAR ? D/ 8 E-Signed by: <Electronically signed by Mendoza Apodaca MD> ? D/ 1339 Procedure Note Hector Apodaca MD - 02/28/[address] [address] Diagnostic Imaging Report Signed Patient Name:JODIE DWYERcount Number:[id number] Date of :2000 MRNumber:[id number] Age:15 Sex:F Category: CR Date ofExam:10/26/15 Procedure: CR: Ankle, LT; 3+ viewsAccession: [id number] Ordering Physician: Melissa Garza MD CC: Optional Provider Melissa Garza MD LEFT ANKLE The patient has a history of injury. Four views are submitted with no prior left ankle series currentlyavailable for comparison. No significant bone, joint or surrounding soft tissue abnormality isidentified. If signs or symptoms persist, a close interval follow-up study is advised. Dictated by: Mendoza Apodaca MDD/ 0818 Transcribed by: EDMARD/ 8 E-Signed by: <Electronically signed by Mendoza Apodaca MD>D/ 1339 us Melissa Garza MD IM[facility] DIAGNOSTIC IM[facility] Final Result documented in this encounter Visit Diagnoses Not on filedocumented in this encounter Care Teams Roustabout Supervisor Relationship Specialty Start Date End Date Felix Smith MD [address] [facility] [place] [phone] PCP - General 01/17/10 documented as of this encounter
--- OUTSIDE RECORDS SUMMARY | 2024-04-29 15:54 | XMS_ITS | Encounter Summary ---
Author Organization [facility] Address [address] [place] [address] Care Team Providers Care Fleet Service Manager Name Role Phone Felix Smith MD Primary Care Provider [phone] Reason for Visit * Reason Onset Date Comments Head Lice 11/11/2011 Encounter Details Date Type Department Care Team (Late st Contact Info) Description 11/11/[address] [phone] Felix Smith MD [address] [facility] [place] [phone] Head Lice Social History Tobacco Use Types Packs/Day Years Used Date Smoking Tobacco: Never Assessed Comments Unknown Sex and Gender Information Value Date Recorded Sex Assigned at Not on file Legal Sex Female 18:30 EST Gender Identity Not on file Sexual Orientation Not on file documented as of this encounter Miscellaneous Notes * Telephone Encounter - Tamara Valdovinos - 11/11/2011 [...] on filedocumented in this encounter Care Teams Fleet Service Manager Relationship Specialty Start Date End Date Felix Smith MD [address] [facility] [place] [address] PCP - General 01/17/10 documented as of this encounter
--- OUTSIDE RECORDS SUMMARY | 2024-04-29 15:54 | XMS_ITS | Referral Summary ---
Author Organization [facility] Address [address] [place] [address] Care Team Providers Care Draw Frame Runner Name Role Phone Felix Smith MD Primary Care Provider [phone] Allergies Active Allergy Reactions Criticality Noted Date [...] Orientation Not on file Plan of Treatment Not on file Care Teams Draw Frame Runner Relationship Specialty Start Date End Date Felix Smith MD [address] [place] [address] [place] [phone] PCP - General 01/17/10
--- OUTSIDE RECORDS SUMMARY | 2024-04-29 15:54 | XMS_ITS | Encounter Summary ---
Author Organization [facility] Address [address] [place] [address] Care Team Providers Care Engraver Automatic Name Role Phone Felix Smith MD Primary Care Provider [phone] Encounter Details Date Type Department Care Team (Late st Contact Info) Description 05/27/[address] [facility] Pathology & Laboratory Medicine - [address] [phone] Outr Resulting Lab, Provider Social History Tobacco Use Types Packs/Day Years [...] Procedure Name Priority Date/Time Associated Diagnosis Comments CELIAC DISEASE PANEL Routine 05/26/2023 15:17 EST documented in this encounter Results * CELIAC DISEASE PANEL (05/26/2023 15:17 EST) Tissue Transglutaminase Antibody, IgA <4.0 <20.0 CU 06/01/2023 12:28 EST [facility] Comment: A negative result may be due to IgA deficiency and does not rule out celiac disease. Negative: <20.0 CU Weak Positive: 20.0-30.0 CU Positive: >30.0 CU Results were obtained with the [place] [employer] Flash h-tTG IgA chemiluminescent immunoassay. Values obtained with different manufacturers' assay methods may not be used interchangeably. IgA 112 85 - 499 mg/dL 06/01/2023 12:28 EST [facility] Celiac Disease Interpretation Negative Serology. Celiac disease unlikely. Approximately 10% of patients with celiac disease are seronegative. Patients who are already adhering to a gluten-free diet may also be seronegative. If celiac disease is highly clinically suspected, referral to gastroenterology for additional evaluation is recommended. 06/01/2023 12:28 EST [facility] Blood VENOUS BLOOD / Unknown 05/26/2023 15:17 EST 05/27/2023 17:07 EST us Provider Outr Resulting Lab IMMUNOLOGY AND SEROL OGY ORDERABLES Final Result [facility] [address] [place] [address] documented in this encounter Visit Diagnoses Not on filedocumented in this encounter Care Teams Engraver Automatic Relationship Specialty Start Date End Date Felix Smith MD [address] [place] [phone] PCP - General 01/17/10 documented as of this encounter
--- OUTSIDE RECORDS SUMMARY | 2024-04-29 15:54 | XMS_ITS | Encounter Summary ---
Author Organization [facility] Address [address] [place] [address] Care Team Providers Care Venetian Blind Installer Name Role Phone Unavailable Primary Care Provider Unavailabl e Encounter Details Date Type Department Care Team (Late st Contact Info) Description 08/04/2005 Before PRISM Converted Visit (Maple) [facility] - Maple conversion [address] [place] [address] Gwendolyn Nur MD Social History Tobacco Use Types Packs/Day Years Used Date Smoking Tobacco: Never Assessed Comments Unknown Sex and Gender Information Value Date Recorded Sex Assigned at Not on file Legal Sex Female 18:30 EST Gender Identity Not on file Sexual Orientation Not on file documented as of this encounter Progress Notes * Gwendolyn Nur MD - 05/11/2009 0959 EST PROGRESS/FOLLOWUP NOTE - 08/04/2005 August 05, 2005 Felix Smith MD [facility], [address] [place] [address] Smith: I had the pleasure of seeing Jodie in our cardiology clinic on 08/04/2005. She is a 5- year- old child who has been seen in the past and thought to have an innocent murmur. She is here for a followup visit with us. Since her last visit, she has generallybeen healthy. She has required albuterol andPulmicort by nebulized therapy on a b.i.d. basis. Jodie's pulmonary status has been stable and shehas had no need for a chest x- ray or emergency room visit. At present, she has a mild upper respiratory infection. There has been no decline in her exercise tolerance and she seems to keep up easilywith other children in running. She has had no dizzy spells or apparent chest discomfort. She has not had any complaints. There were no concerns raised on review of systems. She had PE tube placementwithout anesthetic complications. Jodie has an amoxicillin allergy. On [...] the lower sternal border when she was supine. There was no murmur heard posteriorly. Her lungs were clear without wheezing or increased workof breathing. Her liver was not enlarged and [...] an innocent murmur on examination today, I wanted to be sure that there was no atrial [...] Gwendolyn Nur MD 08/12/2005 22:02 Elis Nur, [facility] [phone] Ann Drucker, MD Gwendolyn Nur MD Division of Pediatric Cardiology [phone] - Gwendolyn Nur MD P - O4 Job ID: [id number] Document ID: [id number] cc: Felix Smith MD documented in this encounter Plan of Treatment Not on file documented as of this encounter Visit Diagnoses Not on filedocumented in this encounter
--- OUTSIDE RECORDS SUMMARY | 2024-04-29 15:54 | XMS_ITS | Encounter Summary ---
Author Organization [facility] Address [address] [place] [address] Care Team Providers Care Creative Art Therapist Name Role Phone Felix Smith MD Primary Care Provider [phone] Reason for Visit * Reason Onset Date Comments Head Lice 11/10/2011 Encounter Details Date Type Department Care Team (Late st Contact Info) Description 11/10/[address] [phone] Dereck Aguillon MD [address] [place] [phone] Head Lice Social History Tobacco Use Types Packs/Day Years Used Date Smoking Tobacco: Never Assessed Comments Unknown Sex and Gender Information Value Date Recorded Sex Assigned at Not on file Legal Sex Female 18:30 EST Gender Identity Not on file Sexual Orientation Not on file documented as of this encounter Ordered Prescriptions Prescription Sig Dispense Quantity Refills Last Filled Start Date End Date spinosad 0.9 % Susp Apply 1 application topically daily for 1 day. Repeat once in one week 1 Bottle 1 11/11/2011 2 documented in this encounter Miscellaneous Notes * Telephone Encounter - Tamara Valdovinos - 11/11/2011 1042 EDT Notified mom that script had been sent in * Telephone Encounter - Willam Turner MD - 11/11/2011 1035 EDT Script sent in. Will wait to see if PA needed * Telephone Encounter - Yumiko Stark - 11/11/2011 0938 EDT She used nix OTC and mayonnaise twice for both. * Telephone Encounter - Willam Turner MD - 11/11/2011 0931 EDT We need to document exactly what she has tried and how many times because the prescriptions requirePA * Telephone Encounter - Yumiko Stark - 11/11/2011 0906 EDT Message forwarded to DR. Turner does patient need office visit or can prescription be called in. Please advise. Thank you * Telephone Encounter - Shereen Kerns - 11/10/2011 1612 EDT With mom now for the next week or so, has head lice and mom states she has tried everything, but cannot get rid of them, looking to see if we could call in a prescription for head lice, would like touse [place] in [place] Aware pt has not been seen here since 01.21.10 and that she may get a phone call back tomorrow documented in this encounter Plan of Treatment Not on file documented as of this encounter Visit Diagnoses Not on filedocumented in this encounter Care Teams Creative Art Therapist Relationship Specialty Start Date End Date Felix Smith MD [address] [place] [address] [place] [phone] PCP - General 01/17/10 documented as of this encounter
--- OUTSIDE RECORDS SUMMARY | 2024-04-29 15:54 | XMS_ITS | Encounter Summary ---
Author Organization [facility] Address [address] [place] [address] Care Team Providers Care Um Specialist Name Role Phone Felix Smith MD Primary Care Provider [phone] Encounter Details Date Type Department Care Team (Late st Contact Info) Description 11/04/2021 Lab Requisition [facility] Pathology & Laboratory Medicine - [address] [id number] Outr Resulting Lab, Provider Social History Tobacco [...] Procedure Name Priority Date/Time Associated Diagnosis Comments CHLAMYDIA/N. GONORRHOEAE AMPLIFIED NUCLEIC ACID Routine 11/03/2021 16:00 EDT documented in this encounter Results * CHLAMYDIA/N. GONORRHOEAE AMPLIFIED RNA (11/03/2021 16:00 EDT) Neisseria gonorrhoeae Result Negative Negative 11/05/2021 15:00 EDT [facility] Chlamydia trachomatis Result Negative Negative 11/05/2021 15:00 EDT [facility] Swab ENTIRE ENDOCERVIX / Unknown 11/03/2021 16:00 EDT 11/04/2021 20:35 EDT us Provider Outr Resulting Lab MICROBIOLOGY - GENER AL ORDERABLES Final Result [facility] [address] [place] [address] documented in this encounter Visit Diagnoses Not on filedocumented in this encounter Care Teams Um Specialist Relationship Specialty Start Date End Date Felix Smith MD [address] [place] [phone] PCP - General 01/17/10 documented as of this encounter
--- OUTSIDE RECORDS SUMMARY | 2024-04-29 15:54 | XMS_ITS | Encounter Summary ---
Author Organization [facility] Address [address] [place] [address] Care Team Providers Care Communications Department Head Name Role Phone Felix Smith MD Primary Care Provider [phone] Encounter Details Date Type Department Care Team (Late st Contact Info) Description 02/18/2021 Lab Requisition [facility] Pathology & Laboratory Medicine - [address] [id number] Outr Resulting Lab, Provider Social History Tobacco [...] Comments CHLAMYDIA/N. GONORRHOEAE AMPLIFIED NUCLEIC ACID Routine 02/17/2021 14:15 EDT documented in this encounter Results * CHLAMYDIA/N. GONORRHOEAE AMPLIFIED RNA (02/17/2021 14:15 EDT) Neisseria gonorrhoeae Result Negative Negative 02/19/2021 16:48 EDT [facility] Chlamydia trachomatis Result Negative Negative 02/19/2021 16:48 EDT [facility] Urine URINE / Unknown 02/17/2021 1 4:15 EDT 02/18/2021 17:35 EDT Narrative [facility] - 02/19/2021 16:48 EDT A first catch urine specimen is acceptable for detection of Gonorrhea and Chlamydia, but might detect up to 10% fewer infections when compared with vaginal and endocervical swab samples. us Provider Outr Resulting Lab MICROBIOLOGY - GENER AL ORDERABLES Final Result [facility] [address] [place] [address] documented in this encounter Visit Diagnoses Not on filedocumented in this encounter Care Teams Communications Department Head Relationship Specialty Start Date End Date Felix Smith MD [address] [facility] [place] [phone] PCP - General 01/17/10 documented as of this encounter
--- OUTSIDE RECORDS SUMMARY | 2024-04-29 15:55 | XMS_ITS | Encounter Summary ---
Author Organization [facility] Address [address] [place] [address] Care Team Providers Care Color Consultant Name Role Phone Unavailable Primary Care Provider Unavailabl e Encounter Details Date Type Department Care Team (Late st Contact Info) Description 2002 9:24 EDT Hospital Encounter [facility] [address] [place] [address] Gwendolyn Nur MD Social History Tobacco Use [...]
--- OUTSIDE RECORDS SUMMARY | 2024-04-29 15:55 | XMS_ITS | Encounter Summary ---
Author Organization [facility] Address [address] [place] [address] Care Team Providers Care Computer Applications Developer Name Role Phone Unavailable Primary Care Provider Unavailabl e Encounter Details Date Type Department Care Team (Late st Contact Info) Description 07/03/2003 13:54 EST Hospital Encounter [address] [address] Biju Meza MD [address] [place] [address], [address] [place] [address] Discharge Disposition: Auto Discharge Social History Tobacco [...]
--- OUTSIDE RECORDS SUMMARY | 2024-04-29 15:55 | XMS_ITS | Encounter Summary ---
Author Organization [facility] Address [address] [place] [address] Care Team Providers Care Fitness Assistant Name Role Phone Unavailable Primary Care Provider Unavailabl e Encounter Details Date Type Department Care Team (Latest Contact Info) Description 2002 21:25 EST - 2002 11:59 EST Hospital Encounter [facility] [address] [place], [place] [address] Felix Smith MD [address] [place] [phone] Discharge Disposition: Home-Health Care Svc Social History Tobacco Use Types Packs/Day Years [...]
--- OUTSIDE RECORDS SUMMARY | 2024-04-29 15:55 | XMS_ITS | Encounter Summary ---
Author Organization [facility] Address [address] [place] [address] Care Team Providers Care Cisco Network Architect Name Role Phone Unavailable Primary Care Provider Unavailabl e Encounter Details Date Type Department Care Team (Late st Contact Info) Description 01/09/2003 10:09 EDT Hospital Encounter [facility] [place] [address] [place] [address] Gwendolyn Nur MD Social History Tobacco Use [...]
--- OUTSIDE RECORDS SUMMARY | 2024-04-29 15:55 | XMS_ITS | Encounter Summary ---
Author Organization [facility] Address [address] [place] [address] Care Team Providers Care Deck Hand Name Role Phone Unavailable Primary Care Provider Unavailabl e Encounter Details Date Type Department Care Team (Late st Contact Info) Description 07/27/2003 17:13 EST Hospital Encounter [facility] - Other [address] [place] [address] Felix Smith MD [address] [place] [phone] Social History Tobacco Use Types Packs/Day [...]
--- OUTSIDE RECORDS SUMMARY | 2024-04-29 15:55 | XMS_ITS | Encounter Summary ---
Author Organization [facility] Address [address] [place] [address] Care Team Providers Care Plant General Manager Name Role Phone Unavailable Primary Care Provider Unavailabl e Encounter Details Date Type Department Care Team (Latest Contact Info) Description 2002 11:56 EST - 2002 11:59 EST Hospital Encounter [facility] [address] [place] [address] Leesa Victor MD [address] [place] [phone] Discharge Disposition: Auto Discharge Social History Tobacco [...] Procedure Name Priority Date/Time Associated Diagnosis Comments CHEST PA AND LATERAL Routine 2002 12:42 EST documented in this encounter Results * CHEST PA AND LATERAL (2002 12:42 EST) Anatomical Region Laterality Modality Other 2002 12:4 2 EST Narrative 02/12/2009 3:05 EDT NEW HEART MURMUR, URI R/O CARDIOMEG, INFILTRATE CHEST: 2002, 1240 HOURS FINDINGS: Frontal and lateral views of the chest are obtained. Normal lung volumes are noted. Normal cardiomediastinal silhouette. Lung parenchyma and pleura are unremarkable. Normal situs. No skeletal abnormalities. No cardiomegaly. IMPRESSIONS: Normal chest x-ray. /tns Procedure Note Marita Valle MD - 02/12/2009 NEW HEART MURMUR, URI R/O CARDIOMEG, INFILTRATE CHEST: 2002, 1240 HOURS FINDINGS: Frontal and lateral views of the chest are obtained. Normal lung volumes are noted. Normal cardiomediastinal silhouette. Lung parenchyma and pleura are unremarkable. Normal situs. No skeletal abnormalities. No cardiomegaly. IMPRESSIONS: Normal chest x-ray. /tns us Leesa Victor MD IMG DIAGNOSTIC IMAGING ORDER JUAN MIGUEL Final Result documented in this encounter Visit Diagnoses Not on filedocumented in this encounter
--- OUTSIDE RECORDS SUMMARY | 2024-04-29 15:55 | XMS_ITS | Encounter Summary ---
Author Organization [facility] Address [address] [place] [address] Care Team Providers Care Retail Worker Name Role Phone Felix Smith MD Primary Care Provider Encounter Details Date Type Department Care Team (Late st Contact Info) Description 07/27/2003 Results Only [address] [phone] Felix Smith MD [address] [place] [phone] Social History Tobacco Use Types Packs/Day [...] Procedure Name Priority Date/Time Associated Diagnosis Comments BACTERIAL CULTURE, URINE Routine 07/27/2003 16:00 EST documented in this encounter Results * BACTERIAL CULTURE, URINE (07/27/2003 16:00 EST) Specimen Description Urine [facility] Result 10,000 to 100,000 CFU/ml Mixed gram positive growth [facility] Report Status Final [id number] [facility] 07/27/2003 16:0 0 EST 07/27/2003 18:03 EST Felix Smith MD MICROBIOLOGY - GENERAL ORDERA BLES Final Result [facility] [address] [place] [address] documented in this encounter Visit Diagnoses Not on filedocumented in this encounter Care Teams Retail Worker Relationship Specialty Start Date End Date Felix Smith MD [address] [facility] [place] [phone] PCP - General 01/17/10 documented as of this encounter
== END 2024-04-29 15:52 | disposition home or self-care (01) ==
LOC: ER 15:53
PROVIDERS: Emergency Provider Emergency Medicine; PCP Nurse Practitioner Family
DX: R11.2 Nausea with vomiting, unspecified (principal); K58.9 Irritable bowel syndrome, unspecified; K21.9 Gastro-esophageal reflux disease without esophagitis; F10.90 Alcohol use, unspecified, uncomplicated
CPT/HCPCS: 80053; 83690; 96374; 96375; 99284; 80320; 84703; 85025; 99283; J2405

== ENCOUNTER 2024-05-03 11:59 | Emergency (ER) | payer SELFPAY ==
[2024-05-03] VITALS (13 sets, daily range): BP systolic 116–157; BP diastolic 60–98; PULSE 55–88; RESP 11–22; TEMP 36.4–37.1; O2SAT 97–99
[2024-05-03 13:59] LABS: Abs Immature Grans 0.06 10^3/uL (0.0-0.06); Absolute Basophil Count 0.06 10^3/uL (0.0-0.2); Absolute Eosinophil Count 0.03 10^3/uL (0.0-0.7); Absolute Lymphocyte Count 2.87 10^3/uL (1.2-3.4); Absolute Monocyte Count 0.72 10^3/uL (0.1-0.8); Absolute Neutrophil Count 10.18 10^3/uL (1.2-6.7); Basophils % 0.4 %; Eosinophils % 0.2 %; HGB 14.5 g/dL (11.2-15.7); Immature Grans % 0.4 %; Lymphocytes % 20.6 %; MCHC 36.3 % (32.0-36.0); MCV 86 fL (80-95); MPV 8.6 fL (8.0-11.0); Monocytes % 5.2 %; Neutrophils % 73.2 %; Platelet Count 420 10^3/uL (130-400); RBC 4.68 10^6/uL (3.93-5.22); RDW 11.7 % (11.7-14.6); WBC 13.91 10^3/uL (4.4-10.8)
[2024-05-03 14:18] LABS: ALT 24 U/L (14-59); AST 15 U/L (15-37); Albumin 4.1 g/dL (3.4-5.0); Alkaline Phosphatase 63 U/L (46-116); Anion Gap 11.9 mmol/L (3-11); BUN 7 mg/dL (7-18); Bilirubin, Total 0.43 mg/dL (0.2-1.0); CO2 26.1 mmol/L (21.0-32.0); CREATININE 0.8 mg/dL (0.55-1.02); Calcium 9.4 mg/dL (8.5-10.1); Chloride 103 mmol/L (98-107); Estimated GFR 107.44 (mL/min/1.73m2); Glucose 106 mg/dL (74-106); Lipase 35 U/L (<78); Magnesium 2.2 mg/dL (1.8-2.4); Potassium 3.7 mmol/L (3.5-5.1); Sodium 141 mmol/L (136-145); Total Protein 7.8 g/dL (6.4-8.2)
[2024-05-03] MEDS: HYDROmorphone 2 MG/ML SYR 1 MG IVP (14:26)
--- NOTE | 2024-05-03 14:35 | W.ED.GENAD ---
Discharge Plan Discharge Details Chief Complaint: Abd Prob Primary Care Provider: Gina Babcock ED Provider: Ward Mtz Home Meds and New Rx's Prescriptions: No Action albuterol sulfate 90 mcg/actuation HFA aerosol inhaler 1 inh inhalation ONCE Qty: 6.7 0RF omeprazole 20 mg capsule,delayed release(DR/EC) 20 mg PO DAILY HPI General Mode of arrival: ambulatory. Date/Time Provider Initiated Documentation: 05/03/24 12:53. Limitations to Documentation: no limitations. Information obtained by: patient. HPI Narrative: 23yo female 32 with history of bipolar disorder, anxiety depression, gastritis, constipation, abdominal pain, here with chief complaint of abdominal pain. Patient notes bilateral lower abdominal pain as well as central abdominal pain that radiates into her epigastric area. Pain started about 5 days ago. She was initially seen here in the emergency department on Wednesday and was discharged home after nondiagnostic workup. Patient notes she is continued to have pain that waxes and wanes but is continually present. Pain is severe at times and described as crampy. She has associated nausea and vomiting. Patient does note she has had chronic intermittent abdominal pain over the past 5 years and has been diagnosed with irritable bowel syndrome and GERD. There was an outpatient diagnostic plan for endoscopy that was canceled due to lack of insurance. Related Data Home Medications ?Medication ?Instructions ?Recorded ?Confirmed albuterol sulfate 90 mcg/actuation 1 inh inhalation ONCE #6.7 grams 03/31/22 05/03/24 aerosol inhaler omeprazole 20 mg capsule,delayed 20 mg PO DAILY 04/29/24 05/03/24 release Previous Rx's ?Medication ?Instructions ?Recorded albuterol sulfate 90 mcg/actuation 1 inh inhalation ONCE #6.7 grams 03/31/22 aerosol inhaler Allergies Allergy/AdvReac Type Severity Reaction Status Date / Time Penicillins Allergy Other (See Unverified 05/03/24 12:06 Comment) General Stated Complaint: Abd Prob ALLY: 3 Review of Systems All systems reviewed & are unremarkable except as noted in HPI and below Constitutional Constitutional: Denies fever(s) Gastrointestinal Gastrointestinal: Reports abdominal pain, Reports constipation, Reports nausea and Reports vomiting Exam Const General: uncomfortable, acute distress and not diaphoretic Nutritional Appearance: well nourished Orientation: alert and awake HENMT Mouth: moist mucous membranes Eyes Conjunctivae: normal conjunctivae Sclera: normal sclerae Resp Auscultation: clear to auscultation bilaterally, no rales, no rhonchi and no wheezes Cardio Rate: regular rate and not tachycardic Rhythm: regular rhythm GI Palpation: soft, not firm, no guarding, no masses, not rigid and tender in the epigastrum and in the LLQ Auscultation: normal bowel sounds Skin General skin exam: no rashes or lesions noted Neuro General: patient alert, patient awake and tone normal Extrem General: no edema Psych Appearance: grossly normal Mental Status: mental status grossly normal Course Vital Signs Vital signs: Vital Signs Temperature 36.4 C L 05/03/24 12:02 Pulse 70 05/03/24 12:02 Respiratory Rate 20 05/03/24 12:02 Blood Pressure 132/79 05/03/24 12:02 Pulse Oximetry 97 05/03/24 12:02 Temperature 36.4 C L 05/03/24 12:05 Pulse 70 05/03/24 12:05 Respiratory Rate 20 05/03/24 12:05 Respiratory Effort Normal 05/03/24 12:05 Blood Pressure 132/79 05/03/24 12:05 Pulse Oximetry 97 05/03/24 12:05 Oxygen Delivery Method Room Air 05/03/24 12:05 Oxygen Flow Rate 0 05/03/24 12:02 Pain Level 7 05/03/24 12:39 Lab/Test Results Lab/Test Results: Laboratory Tests Range/Units 05/03/24 13:51 WBC (4.4-10.8) 10^3/uL 13.91 H RBC (3.93-5.22) 10^6/uL 4.68 Hgb (11.2-15.7) g/dL 14.5 Hct (36.0-46.0) % 40.0 MCV (80-95) fL 86 MCH (27.0-33.0) pg 31.0 MCHC (32.0-36.0) % 36.3 H RDW (11.7-14.6) % 11.7 Plt Count (130-400) 10^3/uL 420 H MPV (8.0-11.0) fL 8.6 Immature Gran % % 0.4 Neutrophils % % 73.2 Lymphocytes % % 20.6 Monocytes % % 5.2 Eosinophils % % 0.2 Basophils % % 0.4 Nucleated RBC % (0.0-0.3) % 0.0 Absolute Neutrophils (1.2-6.7) 10^3/uL 10.18 H Absolute Lymphocytes (1.2-3.4) 10^3/uL 2.87 Absolute Monocytes (0.1-0.8) 10^3/uL 0.72 Absolute Eosinophils (0.0-0.7) 10^3/uL 0.03 Absolute Basophils (0.0-0.2) 10^3/uL 0.06 Sodium (136-145) mmol/L 141 Potassium (3.5-5.1) mmol/L 3.7 Chloride (98-107) mmol/L 103 Carbon Dioxide (21.0-32.0) mmol/L 26.1 Anion Gap (3-11) mmol/L 11.9 H BUN (7-18) mg/dL 7 Creatinine (0.55-1.02) mg/dL 0.8 Est GFR (CKD-EPI 2020) (mL/min/1.73m2) 107.44 Glucose (74-106) mg/dL 106 Calcium (8.5-10.1) mg/dL 9.4 Magnesium (1.8-2.4) mg/dL 2.2 Total Bilirubin (0.2-1.0) mg/dL 0.43 AST (15-37) U/L 15 ALT (14-59) U/L 24 Alkaline Phosphatase (46-116) U/L 63 Total Protein (6.4-8.2) g/dL 7.8 Albumin (3.4-5.0) g/dL 4.1 Lipase (<78) U/L 35 POC Urine Test Start: 05/03/24 13:15 Freq: Status: Complete Protocol: Document 05/03/24 13:15 DESTINY (Rec: 05/03/24 13:16 DESTINY [id number]) Test(Urine)-POC POC- Test(urine) Negative POC- Test(urine) Negative Medical Decision Making 23-year-old female with history of bipolar disorder, anxiety depression, constipation, ovarian cyst, chronic abdominal pain, here with acute exacerbation abdominal pain over the past 5 days with associated constipation and nausea vomiting. Consider acute intra-abdominal surgical process including bowel obstruction. Plan to obtain CT of the abdomen pelvis. Dilaudid 1 mg IV was administered for analgesia. Will provide IV fluid as well as antiemetic IV. Lab Data Lab results reviewed: Yes I reviewed the patient's lab results. Labs: Laboratory Tests Range/Units 05/03/24 13:51 WBC (4.4-10.8) 10^3/uL 13.91 H RBC (3.93-5.22) 10^6/uL 4.68 Hgb (11.2-15.7) g/dL 14.5 Hct (36.0-46.0) % 40.0 MCV (80-95) fL 86 MCH (27.0-33.0) pg 31.0 MCHC (32.0-36.0) % 36.3 H RDW (11.7-14.6) % 11.7 Plt Count (130-400) 10^3/uL 420 H MPV (8.0-11.0) fL 8.6 Immature Gran % % 0.4 Neutrophils % % 73.2 Lymphocytes % % 20.6 Monocytes % % 5.2 Eosinophils % % 0.2 Basophils % % 0.4 Nucleated RBC % (0.0-0.3) % 0.0 Absolute Neutrophils (1.2-6.7) 10^3/uL 10.18 H Absolute Lymphocytes (1.2-3.4) 10^3/uL 2.87 Absolute Monocytes (0.1-0.8) 10^3/uL 0.72 Absolute Eosinophils (0.0-0.7) 10^3/uL 0.03 Absolute Basophils (0.0-0.2) 10^3/uL 0.06 Sodium (136-145) mmol/L 141 Potassium (3.5-5.1) mmol/L 3.7 Chloride (98-107) mmol/L 103 Carbon Dioxide (21.0-32.0) mmol/L 26.1 Anion Gap (3-11) mmol/L 11.9 H BUN (7-18) mg/dL 7 Creatinine (0.55-1.02) mg/dL 0.8 Est GFR (CKD-EPI 2020) (mL/min/1.73m2) 107.44 Glucose (74-106) mg/dL 106 Calcium (8.5-10.1) mg/dL 9.4 Magnesium (1.8-2.4) mg/dL 2.2 Total Bilirubin (0.2-1.0) mg/dL 0.43 AST (15-37) U/L 15 ALT (14-59) U/L 24 Alkaline Phosphatase (46-116) U/L 63 Total Protein (6.4-8.2) g/dL 7.8 Albumin (3.4-5.0) g/dL 4.1 Lipase (<78) U/L 35 Quality:SDOH Health Related Social Needs: No Data to Display PFSH All Active Problems Nausea & vomiting (Acute) ADD (attention deficit disorder) (Chronic) ADHD Adult Self -Report - very positive for ADD. has h/o inattention throughout school years Uses contraception (Acute) OCPs until 02/2021. Liletta IUD for convenience Until 10/2021 but it was removed and OCPs to be started Oral contraception initial prescription (Acute) Bipolar disorder (Acute) Anxiety and depression (Chronic) Abdominal pain (Acute) Urinary tract infection (Acute) Constipation (Acute) Nausea and vomiting (Acute) Ovarian cyst (Acute) Gastritis (Acute) Trauma and stressor-related disorder (Acute) Medical History Encounter for IUD removal Elevated lipids (02/25/16) Penicillin allergy Wears glasses Smoker in home outside Surgical History Myringotomy w/ PE (pressure equalizing) tubes bilateral; needed f/u surgery for perforated tympanic membrane. Family History Mother Mental disorder anxiety/depression Father No problems noted. Other Substance abuse mat/pat sides Alcohol abuse mat/pat sides Essential hypertension pat uncle Heart disease pat GGF & MGF Hyperlipidemia PGF Myocardial infarction pat GGF Asthma mat/pat sides Social History Smoking/Tobacco Use Status: Unknown Second Hand Exposure: Yes Smoking risk assessment performed?: Yes Alcohol Intake: current Alcohol Intake frequency: a few times a week Drug use: Daily Substance use type: marijuana Adopted: No Foster care: No Household members: other Details: BF - C. J. 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 Pets and animals: Yes (1 cat) Pets and animals: cat(s) Current gender identity: female Seatbelt use: always Helmet use: Yes Fire extinguisher in home: Yes Carbon monox detector in home: Yes Firearms in home: No Do you feel safe at home: Yes Do you feel safe in your relationship?: Yes History History 1 Para Hx # Term Pregnancies Multiple births Hx # Pregnancies Ectopic pregnancies AB induced Hx Number of Living Children AB spontaneous PAWSS Have you Been Recently Intoxicated or Drunk Within the Last 30 days?: No Have you Ever Experienced Previous Episodes of Alcohol Withdrawal?: No Have you ever Experienced Withdrawal Seizures?: No Have you ever Experienced Delirium Tremens(DT)s?: No Have you ever undergone Alcohol Rehabilitation Treatment (i.e, inpt ot outpatient treatment programs)?: No Have you ever Experienced Blackouts?: Yes Have you ever Combined Alcohol with other Downers within the last 90 days?: No Have you ever Combined Alcohol with any other Substance of Abuse during the last 90 days?: No Positive Blood Alcohol level on Presentation? [PCS.BAL]: No Evidence of Increased Autonomic Activity (i.e. HR>120, tremor, sweating, agitation, nausea)?: No Result: 1
--- NOTE | 2024-05-03 15:45 | DI.CT_ITS ---
Exam(s) CT ABDOMEN PELVIS W EXAM: CT ABDOMEN PELVIS W CLINICAL HISTORY: abdominal pain TECHNIQUE: Imaging Protocol: Axial computed tomography images with coronal and sagittal reformatted images were created and reviewed. CONTRAST MATERIAL: Intravenous: Omnipaque 350 Contrast volume:80 mL Oral: No COMPARISON: CT CT ABDOMEN PELVIS W from 03/28/2021 FINDINGS: ABDOMEN: Lung Bases: Normal where visualized. Liver: Normal density. No measurable mass. Portal, Superior Mesenteric, and Splenic Veins: Unremarkable. Gallbladder and Biliary Tract: No radiodense calculus or dilation. Pancreas: Normal density, no abnormal calcifications or inflammatory process. Spleen: Normal. Adrenals: No masses seen. Kidneys: Normal size, contour and axis. No radiodense stones or obstructive uropathy. No masses seen. Abdominal Aorta: Abdominal portion non-dilated. Bowel: No obstruction or bowel wall thickening. Appendix is unremarkable. Peritoneal Cavity: No ascites, collection or mesenteric inflammatory response. No free air. Lymph Nodes: Within normal limits. Bones: Within normal limits for the patient's age. Soft Tissues: Unremarkable. PELVIS: Bladder: Symmetric distention, no gross wall thickening. Reproductive Organs: Unremarkable as visualized. Lymph Nodes: Within normal limits. Bones: Within normal limits for the patient's age. IMPRESSION: No acute abdominal or pelvic process. RADIATION DOSE DELIVERED: 677.74mGy.cm Total DLP DATA REPOSITORY: All CT scans at this facility are submitted to the National Radiology Data Registry (NRDR) Dose Index Registry (DIR) with the [employer] (ACR). RADIATION OPTIMIZATION: All CT scans at this facility use at least one of these dose optimization te chniques: automated exposure control; mA and/or kV adjustment per patient size (includes targeted exa ms where dose is matched to clinical indication); or iterative reconstruction.
[2024-05-03] MEDS: Ondansetron 4 MG/2 ML VIAL IVP (16:09)
[2024-05-03] MEDS: Lactated Ringers 1,000 ML 1000 ML IV (16:10)
--- NOTE | 2024-05-03 16:16 | ED.PROG_ITS ---
Date of service: 05/03/24 Time of Service: 16:16 Medical Decision Making Care assumed from off going provider. Patient is a 23-year-old female with 5 days of persistent abdominal pain. Has had lab work today that is unremarkable. Pain improved with Dilaudid, but is still having some nausea. IV fluids and Zo liliana have been given. Final disposition pending CT imaging CT scan reviewed, no acute abnormality. The patient is feeling better and tolerating p.o. She has been provided some Zofran to go home with. She is encouraged to follow-up with her PCP for further outpatient management. Return precautions advised. Quality:[facility] Health Related Social Needs: No Data to Display Sign Out Sign Out Data: Sign Out Comment: Follow-up CT of the abdomen pelvis. Disposition pending reassessment and CT findings. Last updated by Ward Mtz MD at 05/03/24 16:15 Discharge Plan Disposition Patient Disposition: Home Discharge Details Clinical Impression: Abdominal pain, Constipation, Vomiting Primary Care Provider: Gina Babcock ED Provider: Mariia Johns Home Meds and New Rx's Prescriptions: No Action albuterol sulfate 90 mcg/actuation HFA aerosol inhaler 1 inh inhalation ONCE Qty: 6.7 0RF omeprazole 20 mg capsule,delayed release(DR/EC) 20 mg PO DAILY Discharge Instructions Instructions: Abdominal Pain, Adult ED Additional Instructions: Take nausea medication as needed Continue your omeprazole daily start MiraLAX, 1 capful 2-3 times per day to help with your constipation. You can increase this dose until you are having soft daily bowel movements Please follow-up with your PCP for continued management of any ongoing symptoms and referrals for outpatient testing.
[2024-05-03] MEDS: Normal Saline - Diluent 50 ML VIAL IJ (16:20)
[2024-05-03] MEDS: Omnipaque 350 MG/ML 100 ML BTL IJ (16:21)
[2024-05-03] MEDS: Ondansetron O.D.T. 4 MG TABEF, 3 TABS/BTL PO (17:32)
== END 2024-05-03 17:41 | disposition home or self-care (01) ==
PROVIDERS: Student in an Organized Health Care Education/Training Program; Emergency Provider Emergency Medicine; PCP Nurse Practitioner Family
DX: R10.13 Epigastric pain (principal); R10.30 Lower abdominal pain, unspecified; K59.00 Constipation, unspecified; R11.10 Vomiting, unspecified
CPT/HCPCS: 00123; 36415; 80053; 81025; 83690; 96374; 96375; 99285; 74177; 83735; 85025; J1171; J2405; J3490

== ENCOUNTER 2024-09-06 09:16 | Emergency (ER) | payer BC, SELFPAY ==
[2024-09-06] VITALS (25 sets, daily range): BP systolic 112–157; BP diastolic 50–108; PULSE 47–85; RESP 20; TEMP 35.6; O2SAT 90–100
--- NOTE | 2024-09-06 09:36 | W.ED.GENAD ---
Discharge Plan Disposition Patient Disposition: Home Condition: Stable Discharge Details Clinical Impression: Nausea and vomiting Primary Care Provider: Gina Babcock ED Provider: Alfredito Roland Home Meds and New Rx's Prescriptions: New ondansetron 4 mg tablet,disintegrating 4 mg PO .q8hr PRNQty: 30 0RF Continued albuterol sulfate 90 mcg/actuation HFA aerosol inhaler 1 inh inhalation ONCE Qty: 6.7 0RF omeprazole 20 mg capsule,delayed release(DR/EC) 20 mg PO DAILY No Action sucralfate [Carafate] 1 gram tablet 1 g PO BID Qty: 60 0RF esomeprazole magnesium 20 mg capsule,delayed release(DR/EC) 20 mg PO DAILY Qty: 30 0RF famotidine [Pepcid] 20 mg tablet 20 mg PO DAILY Qty: 30 0RF prochlorperazine maleate [Compazine] 10 mg tablet 10 mg PO Q6H PRNQty: 30 0RF Discharge Instructions Instructions: Ondansetron, Nausea and Vomiting, Adult ED, Cannabis hyperemesis syndrome Additional Instructions: You were seen in the emergency department for your nausea and vomiting, your CT scan shows no acute pathology, there is nothing surgical going on in your abdomen, your laboratory studies revealed no sign of severe infection or electrolyte abnormality of any danger, please take the prescribed ondansetron, let the tablet dissolve under your tongue and then wait 20 to 30 minutes before attempting scant oral intake, try drinking about a capful of Gatorade every 5 to 10 minutes, very small bites of food do not overwhelm your stomach trying to drink significant amounts or eat large meals. Please use therapeutic dosing of Tylenol (acetamenophen) & Advil (ibuprofen) in an alternating fashion as follows: Take 1000mg of Tylenol every 6 hours without missing doses- that is 4 times per day. [place] in between the Tylenol dosings, take 400-600mg of Advil also on a 6 hour schedule, that is also 4 times per day. The daily maximum dosing of Tylenol is 4000mg, and the daily maximum dosing of Advil is 2400mg. This is safe to do for weeks. Please note that some common cold medications & prescription pain medications may contain acetamenophen and you need to read OTC drug labels and factor that in to maximum daily dosings. Please return for any severe increased pain especially with fever, chest pain, shortness of breath, intractable nausea vomiting or other emergent concerns. Referrals: Gina Babcock [Primary Care Provider] - Discharge Data Discharge Date/Time-TO BE ENTERED AT DEPARTURE: 09/06/24 14:52 HPI General Date/Time Provider Initiated Documentation: 09/06/24 09:36. HPI Narrative: 24 year-old female presents to ED today by POV/ambulating with a chief complaint of severe abdominal pain, intractable vomiting since yesterday at 5pm. Quality described as nonstop vomiting, unable to keep anything down, no radiation to fever, chance of , hematuria, black/bloody stools, coffee-ground emesis, heavy ETOH use. Severity is described as severe. Palliating factors include nothing specific attempted. Provoking factors include endorses regular marijuana use. Patient not anticoagulated. Related Data Home Medications ?Medication ?Instructions ?Recorded ?Confirmed albuterol sulfate 90 mcg/actuation 1 inh inhalation ONCE #6.7 grams 03/31/22 09/06/24 aerosol inhaler omeprazole 20 mg capsule,delayed 20 mg PO DAILY 04/29/24 09/06/24 release ondansetron 4 mg disintegrating 4 mg PO .q8hr PRN #30 tabs 09/06/24 tablet esomeprazole magnesium 20 mg 20 mg PO DAILY #30 caps 09/07/24 capsule,delayed release famotidine 20 mg tablet (Pepcid) 20 mg PO DAILY #30 tabs 09/07/24 prochlorperazine maleate 10 mg 10 mg PO Q6H PRN #30 tabs 09/07/24 tablet (Compazine) sucralfate 1 gram tablet (Carafate) 1 g PO BID #60 tabs 09/07/24 Previous Rx's ?Medication ?Instructions ?Recorded albuterol sulfate 90 mcg/actuation 1 inh inhalation ONCE #6.7 grams 03/31/22 aerosol inhaler ondansetron 4 mg disintegrating 4 mg PO .q8hr PRN #30 tabs 09/06/24 tablet esomeprazole magnesium 20 mg 20 mg PO DAILY #30 caps 09/07/24 capsule,delayed release famotidine 20 mg tablet (Pepcid) 20 mg PO DAILY #30 tabs 09/07/24 prochlorperazine maleate 10 mg 10 mg PO Q6H PRN #30 tabs 09/07/24 tablet (Compazine) sucralfate 1 gram tablet (Carafate) 1 g PO BID #60 tabs 09/07/24 Allergies Allergy/AdvReac Type Severity Reaction Status Date / Time Penicillins Allergy Other (See Unverified 09/06/24 09:31 Comment) General Stated Complaint: Abd Prob ALLY: 3 Review of Systems All systems reviewed & are unremarkable except as noted in HPI and below Exam Narrative Exam Narrative: GENERAL APPEARANCE: Well-nourished, non-toxic, awake and alert, atraumatic, no acute distress. SKIN: Warm, pink, dry, intact, without rashes/lesions/ulcerations. HEAD: Normocephalic, atraumatic, normal hair distribution for gender/age. EYES: Normal conjunctiva, no exudates on lids/lashes. ENT: Nares patent, no circumoral cyanosis, no facial swelling NECK: Supple, trachea midline, painless cervical ROM. LUNGS/CHEST: Lungs CTA bilaterally, non-labored respirations, normal A/P diameter, symmetrical expansion, no chest wall deformity HEART (CV/PV): Regular rate and rhythm without murmur, no peripheral edema, no JVD. ABDOMEN: Soft, non-distended, no guarding, diffuse tenderness without rebound tenderness, no McBurney's point tenderness, negative Person's sign. MSK: Normal ROM, no swelling/deformity to bilateral UEs or LEs, moving all extremities without weakness, no cyanosis, spine midline without tenderness, normal curvature. NEURO: Mental Status AAOx4 - alert to person, place, time, events No facial droop, no forehead involvement. Motor: No focal weakness - strength 5/5 in bilateral UEs and LEs, proximal and distal, symmetric. Sensory: sensation intact to light touch globally. Gait normal: patient ambulated without ataxia into ED room. PSYCH: euthymic, cooperative, pleasant, appropriate speech Course Vital Signs Vital signs: Vital Signs Temperature 35.6 C L 09/06/24 09:28 Pulse 64 09/06/24 09:28 Respiratory Rate 20 09/06/24 09:28 Blood Pressure 157/108 H 09/06/24 09:28 Pulse Oximetry 98 09/06/24 09:28 Temperature 35.6 C L 09/06/24 09:28 Temperature Source Tympanic 09/06/24 09:28 Pulse 64 09/06/24 09:28 Respiratory Rate 20 09/06/24 09:28 Blood Pressure 151/96 H 09/06/24 09:32 Blood Pressure Position Sitting 09/06/24 09:28 Pulse Oximetry 98 09/06/24 09:28 Oxygen Delivery Method Room Air 09/06/24 09:28 Oxygen Flow Rate 0 09/06/24 09:28 Medical Decision Making This dictation utilizes [id number] dictation software and may contain unedited grammatical errors. 24 year-old female presents to ED today by POV/ambulating with a chief complaint of severe abdominal pain, intractable vomiting since yesterday at 5pm. Quality described as nonstop vomiting, unable to keep anything down, no radiation to fever, chance of , hematuria, black/bloody stools, coffee-ground emesis, heavy ETOH use. Severity is described as severe. Palliating factors include nothing specific attempted. Provoking factors include endorses regular marijuana use. Patients' medical history: Noncontributory. Family and social history: Regular marijuana use, normally eats healthy diet, denies other illicit substance use. Pertinent exam findings / vital signs include diffuse abdominal tenderness without rebound tenderness, active retching, afebrile, nontoxic vitals. Differential / pathologies of concern include cannabis hyperemesis, gastritis, gastroenteritis. Diagnostic studies of: - POC urine , CBC, CMP, lactate, magnesium, lipase, UA, UDS, CT ABD/pelvis W contrast. - POC urine negative - CBC shows mild leukocytosis likely in the setting of vomiting - Lactate 2.1 likely in the setting of vomiting - Magnesium within normal limits - Lipase negative - UA is unremarkable - UDS shows positive for THC - CT shows no acute pathology Interventions of: - IV ondansetron, Toradol, Tylenol, one 2 mg dose of morphine, D5 LR IVF. Zofran to go. ED Course/Assessment/Plan: 24-year-old otherwise healthy female presents with intractable nausea and vomiting since 5 PM yesterday, I do suspect cannabis hyperemesis with no evidence of severe electrolyte derangement or severe dehydration, negative CT, no concerning left shift on white count with mild leukocytosis likely tied to active vomiting, counseled the patient on cessation of marijuana use to perform a trial of relief, she achieved complete symptomatic relief here in the department and was given Zofran to go, encouraged very slow hydration and nourishment at home. Findings not consistent with sepsis, bowel obstruction, , severe electrolyte derangement, acute surgical abdominal pathology. Disposition of Nausea and Vomiting. Patient verbalized understanding of the plan and return to ED criteria and engaged in shared decision making. Medical Records Medical records reviewed: Yes I reviewed the patient's medical records. Imaging Data Radiologic Study: Attestation: I personally reviewed and interpreted this imaging study as follows: Imaging: CT Scan Radiologist's impression: EXAM: CT ABDOMEN PELVIS W CLINICAL HISTORY: abdominal pain, NV TECHNIQUE: Imaging Protocol: Axial computed tomography images with coronal and sagittal reformatted images were created and reviewed. CONTRAST MATERIAL: Intravenous: Omnipaque 350 Contrast volume:75 mL Oral: No COMPARISON: CT CT ABDOMEN PELVIS W from 03/28/[address] ABDOMEN PELVIS W from 05/03/2024 FINDINGS: ABDOMEN: Lung Bases: No acute abnormality. Liver: Normal density. No measurable mass. Portal, Superior Mesenteric, and Splenic Veins: Unremarkable. Gallbladder and Biliary Tract: No radiodense calculus or dilation. Pancreas: Normal density, no abnormal calcifications or inflammatory process. Spleen: Normal. Adrenals: No masses seen. Kidneys: Normal size, contour and axis. No radiodense stones or obstructive uropathy. No masses seen. Abdominal Aorta: Abdominal portion non-dilated. Bowel: No obstruction or bowel wall thickening. Appendix is unremarkable. Peritoneal Cavity: No ascites, collection or mesenteric inflammatory response. No free air. Lymph Nodes: Within normal limits. Bones: Within normal limits for the patient's age. Soft Tissues: Unremarkable. PELVIS: Bladder: Symmetric distention, no gross wall thickening. Reproductive Organs: Unremarkable as visualized. Lymph Nodes: Within normal limits. Bones: Within normal limits for the patient's age. IMPRESSION: No acute abdominal or pelvic process. Lab Data Lab results reviewed: Yes I reviewed the patient's lab results. Labs: Laboratory Tests Range/Units 09/06/24 09/06/24 09:58 10:58 WBC (4.4-10.8) 10^3/uL 13.24 H RBC (3.93-5.22) 10^6/uL 4.69 Hgb (11.2-15.7) g/dL 14.4 Hct (36.0-46.0) % 40.5 MCV (80-95) fL 86 MCH (27.0-33.0) pg 30.7 MCHC (32.0-36.0) % 35.6 RDW (11.7-14.6) % 11.7 Plt Count (130-400) 10^3/uL 323 MPV (8.0-11.0) fL 9.0 Immature Gran % % 0.5 Neutrophils % % 87.4 Lymphocytes % % 7.5 Monocytes % % 4.2 Eosinophils % % 0.1 Basophils % % 0.3 Nucleated RBC % (0.0-0.3) % 0.0 Absolute Neutrophils (1.2-6.7) 10^3/uL 11.57 H Absolute Lymphocytes (1.2-3.4) 10^3/uL 0.99 L Absolute Monocytes (0.1-0.8) 10^3/uL 0.56 Absolute Eosinophils (0.0-0.7) 10^3/uL 0.01 Absolute Basophils (0.0-0.2) 10^3/uL 0.04 VBG Lactate (<or=2.0) mmol/L 2.1 Sodium (136-145) mmol/L 140 Potassium (3.5-5.1) mmol/L 3.6 Chloride (98-107) mmol/L 101 Carbon Dioxide (21.0-32.0) mmol/L 26.8 Anion Gap (3-11) mmol/L 12.2 H BUN (7-18) mg/dL 8 Creatinine (0.55-1.02) mg/dL 0.8 Est GFR (CKD-EPI 2020) (mL/min/1.73m2) 106.77 Glucose (74-106) mg/dL 115 H Calcium (8.5-10.1) mg/dL 9.9 Magnesium (1.8-2.4) mg/dL 2.0 Total Bilirubin (0.2-1.0) mg/dL 0.7 AST (15-37) U/L 13 L ALT (14-59) U/L 14 Alkaline Phosphatase (46-116) U/L 63 Total Protein (6.4-8.2) g/dL 8.3 H Albumin (3.4-5.0) g/dL 4.3 Lipase (<78) U/L 38 Urine Color (Yellow) Yellow Urine Clarity (Clear) Clear Urine pH (5-8) 8.5 H Ur Specific [place] (1.005-1.025) 1.020 Urine Protein (Neg-Trace) mg/dL Negative Urine Ketones (Negative) mg/dL >=160 H Urine Blood (Negative) Small H Urine Nitrite (Negative) Negative Urine Bilirubin (Negative) Negative Urine Urobilinogen (Up to 0.2) mg/dL 0.2 Ur Leukocyte Esterase (Negative) Negative Urine RBC (0-2) HPF 0-2 Urine WBC (0-5) HPF Negative Ur Epithelial Cells (Negative) HPF Few Urine Crystals (Negative) HPF Negative Urine Bacteria (Negative) HPF Negative Urine Casts (Negative) LPF Negative Urine Mucus (Negative) Trace Ur Culture Indicated? No Urine Glucose (Negative) mg/dL 250 H Urine Opiates Screen (Negative) Negative Urine Methadone Screen (Negative) Negative Ur Barbiturates Screen (Negative) Negative Ur Tricyclics Screen (Negative) Negative Ur Amphetamines Screen (Negative) Negative U Benzodiazepines Scrn (Negative) Negative Urine Cocaine Screen (Negative) Negative Ur THC Screen (Negative) Positive A Quality:SDOH Health Related Social Needs: No Data to Display PFSH All Active Problems (Updated 09/07/24 @ 21:25 by SID Calvert) Gastritis (Acute) Nausea and vomiting (Acute) ADD (attention deficit disorder) (Chronic) ADHD Adult Self -Report - very positive for ADD. has h/o inattention throughout school years Uses contraception (Acute) OCPs until 02/2021. Liletta IUD for convenience Until 10/2021 but it was removed and OCPs to be started Oral contraception initial prescription (Acute) Bipolar disorder (Acute) Anxiety and depression (Chronic) Abdominal pain (Acute) Urinary tract infection (Acute) Constipation (Acute) Nausea and vomiting (Acute) Ovarian cyst (Acute) Gastritis (Acute) Trauma and stressor-related disorder (Acute) Medical History Encounter for IUD removal Elevated lipids (02/25/16) Penicillin allergy Wears glasses Smoker in home outside Surgical History Myringotomy w/ PE (pressure equalizing) tubes bilateral; needed f/u surgery for perforated tympanic membrane. Family History Mother Mental disorder anxiety/depression Father No problems noted. Other Substance abuse mat/pat sides Alcohol abuse mat/pat sides Essential hypertension pat uncle Heart disease pat GGF & MGF Hyperlipidemia PGF Myocardial infarction pat GGF Asthma mat/pat sides Social History Smoking/Tobacco Use Status: Unknown Second Hand Exposure: Yes Smoking risk assessment performed?: Yes Alcohol Intake: former Drug use: Daily Substance use type: marijuana Adopted: No Foster care: No Household members: other Details: - C. 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. Pets and animals: Yes (1 cat) Pets and animals: cat(s) Current gender identity: female Seatbelt use: always Helmet use: Yes Fire extinguisher in home: Yes Carbon monox detector in home: Yes Firearms in home: No Do you feel safe at home: Yes Do you feel safe in your relationship?: Yes History History 1 Para Hx # Term Pregnancies Multiple births Hx # Pregnancies Ectopic pregnancies AB induced Hx Number of Living Children AB spontaneous
[2024-09-06 10:03] LABS: Abs Immature Grans 0.06 10^3/uL (0.0-0.06); Absolute Basophil Count 0.04 10^3/uL (0.0-0.2); Absolute Eosinophil Count 0.01 10^3/uL (0.0-0.7); Absolute Lymphocyte Count 0.99 10^3/uL (1.2-3.4); Basophils % 0.3 %; Eosinophils % 0.1 %; HCT 40.5 % (36.0-46.0); HGB 14.4 g/dL (11.2-15.7); Immature Grans % 0.5 %; Lymphocytes % 7.5 %; MCH 30.7 pg (27.0-33.0); MCHC 35.6 % (32.0-36.0); MCV 86 fL (80-95); Monocytes % 4.2 %; Neutrophils % 87.4 %; Platelet Count 323 10^3/uL (130-400); RBC 4.69 10^6/uL (3.93-5.22); RDW 11.7 % (11.7-14.6); RDW-SD 36.5 fL; WBC 13.24 10^3/uL (4.4-10.8)
[2024-09-06 10:04] LABS: Absolute Monocyte Count 0.56 10^3/uL (0.1-0.8); Absolute Neutrophil Count 11.57 10^3/uL (1.2-6.7)
[2024-09-06 10:05] LABS: Lactate 2.1 mmol/L (<or=2.0)
[2024-09-06] MEDS: Ketorolac 15 MG/ML VIAL IVP (10:11)
[2024-09-06] MEDS: Ondansetron 4 MG/2 ML VIAL IVP (10:11)
[2024-09-06] MEDS: ACETAMINOPHEN 1,000 MG/100 ML BAG 400 MG IVPB (10:11)
[2024-09-06 10:20] LABS: ALT 14 U/L (14-59); AST 13 U/L (15-37); Albumin 4.3 g/dL (3.4-5.0); Alkaline Phosphatase 63 U/L (46-116); Anion Gap 12.2 mmol/L (3-11); BUN 8 mg/dL (7-18); Bilirubin, Total 0.7 mg/dL (0.2-1.0); CO2 26.8 mmol/L (21.0-32.0); CREATININE 0.8 mg/dL (0.55-1.02); Calcium 9.9 mg/dL (8.5-10.1); Chloride 101 mmol/L (98-107); Estimated GFR 106.77 (mL/min/1.73m2); Glucose 115 mg/dL (74-106); Lipase 38 U/L (<78); Potassium 3.6 mmol/L (3.5-5.1); Sodium 140 mmol/L (136-145); Total Protein 8.3 g/dL (6.4-8.2)
[2024-09-06] MEDS: DEXTROSE 5%-WATER 500 ML 1000 ML IV (10:20)
--- NOTE | 2024-09-06 10:29 | DI.CT_ITS ---
Exam(s) CT ABDOMEN PELVIS W EXAM: CT ABDOMEN PELVIS W CLINICAL HISTORY: abdominal pain, NV TECHNIQUE: Imaging Protocol: Axial computed tomography images with coronal and sagittal reformatted images were created and reviewed. CONTRAST MATERIAL: Intravenous: Omnipaque 350 Contrast volume:75 mL Oral: No COMPARISON: CT CT ABDOMEN PELVIS W from 03/28/[address] ABDOMEN PELVIS W from 05/03/2024 FINDINGS: ABDOMEN: Lung Bases: No acute abnormality. Liver: Normal density. No measurable mass. Portal, Superior Mesenteric, and Splenic Veins: Unremarkable. Gallbladder and Biliary Tract: No radiodense calculus or dilation. Pancreas: Normal density, no abnormal calcifications or inflammatory process. Spleen: Normal. Adrenals: No masses seen. Kidneys: Normal size, contour and axis. No radiodense stones or obstructive uropathy. No masses seen. Abdominal Aorta: Abdominal portion non-dilated. Bowel: No obstruction or bowel wall thickening. Appendix is unremarkable. Peritoneal Cavity: No ascites, collection or mesenteric inflammatory response. No free air. Lymph Nodes: Within normal limits. Bones: Within normal limits for the patient's age. Soft Tissues: Unremarkable. PELVIS: Bladder: Symmetric distention, no gross wall thickening. Reproductive Organs: Unremarkable as visualized. Lymph Nodes: Within normal limits. Bones: Within normal limits for the patient's age. IMPRESSION: No acute abdominal or pelvic process. RADIATION DOSE DELIVERED: 622.25mGy.cm Total DLP DATA REPOSITORY: All CT scans at this facility are submitted to the National Radiology Data Registry (NRDR) Dose Index Registry (DIR) with the [employer] (A[employer]). RADIATION OPTIMIZATION: All CT scans at this facility use at least one of these dose optimization te chniques: automated exposure control; mA and/or kV adjustment per patient size (includes targeted exa ms where dose is matched to clinical indication); or iterative reconstruction.
[2024-09-06 11:11] LABS: Bilirubin Negative (Negative); Blood Small (Negative); Clarity Clear (Clear); Glucose 250 mg/dL (Negative); Ketones >=160 mg/dL (Negative); Leukocyte Esterase Negative (Negative); Nitrite Negative (Negative); Urobilinogen 0.2 mg/dL (Up to 0.2); pH 8.5 (5-8)
[2024-09-06] MEDS: MORPHine 10 MG/ML VIAL 2 MG IVP ×2 (11:13→13:22)
[2024-09-06 11:17] LABS: Bacteria Negative HPF (Negative); Crystals Negative HPF (Negative); Epithelial Cells Few HPF (Negative); Mucus Trace (Negative); RBC 0-2 HPF (0-2); WBC Negative HPF (0-5)
[2024-09-06 11:18] LABS: C & S Indicated? No; Casts Negative LPF (Negative)
[2024-09-06] MEDS: Omnipaque 350 MG/ML 100 ML BTL IJ (11:18)
[2024-09-06 11:37] LABS: *AMPHETAMINES SCREEN URINE Negative (Negative); *BARBITURATES SCREEN URINE Negative (Negative); *BENZODIAZEPINES SCREEN URINE Negative (Negative); Cannabinoids THC Positive (Negative); Cocaine Screen,Urine Negative (Negative); METHADONE URINE SCREEN Negative (Negative); OPIATES URINE SCREEN Negative (Negative); Tricyclic Antidepressants Negative (Negative)
--- NOTE | 2024-09-06 14:21 | NUR.NOTE ---
Nursing Note: PT says I am feeling better I am hungry now able to eat crackers and apple juice
== END 2024-09-06 14:52 | disposition home or self-care (01) ==
PROVIDERS: Emergency Provider Physician Assistant; PCP Nurse Practitioner Family
DX: R10.84 Generalized abdominal pain (principal); R11.2 Nausea with vomiting, unspecified
CPT/HCPCS: 36415; 80053; 80307; 81025; 83690; 96361; 96374; 96375; 96376; 99285; 74177; 81003; 81015; 83605; 83735; 85025; J0131; J1885; J2270; J2405; J3490

== ENCOUNTER 2024-09-07 18:38 | Emergency (ER) | payer BC, SELFPAY ==
[2024-09-07 18:43] VITALS: BP 124/78; PULSE 58; RESP 16; TEMP 37; O2SAT 97
[2024-09-07] MEDS: Prochlorperazine 10 MG/2 ML VIAL IM (20:05)
[2024-09-07] MEDS: Sucralfate 1 GM TAB PO (20:05)
[2024-09-07] MEDS: Famotidine 20 MG TAB 40 MG PO (20:05)
[2024-09-07] MEDS: Mylanta Suspension 30 ML CUP PO (20:05)
[2024-09-07 21:43] VITALS: BP 131/73; PULSE 54; RESP 17; TEMP 37; O2SAT 100
--- NOTE | 2024-09-08 15:51 | ED.GENADUL_ITS ---
Discharge Plan Disposition Patient Disposition: Home Condition: Stable Discharge Details Clinical Impression: Gastritis Primary Care Provider: Gina Babcock ED Provider: Yvonne Mooney Home Meds and New Rx's Prescriptions: New sucralfate [Carafate] 1 gram tablet 1 g PO BID Qty: 60 0RF esomeprazole magnesium 20 mg capsule,delayed release(DR/EC) 20 mg PO DAILY Qty: 30 0RF famotidine [Pepcid] 20 mg tablet 20 mg PO DAILY Qty: 30 0RF prochlorperazine maleate [Compazine] 10 mg tablet 10 mg PO Q6H PRNQty: 30 0RF Continued albuterol sulfate 90 mcg/actuation HFA aerosol inhaler 1 inh inhalation ONCE Qty: 6.7 0RF ondansetron 4 mg tablet,disintegrating 4 mg PO .q8hr PRNQty: 30 0RF omeprazole 20 mg capsule,delayed release(DR/EC) 20 mg PO DAILY Discharge Instructions Instructions: Gastritis (DC) Additional Instructions: Follow-up with surgery to schedule a scope Follow-up with new PCP, I have listed a referral The esomeprazole discontinue omeprazole, take this for the next 30 days Take the Carafate daily for the next 30 days take the Pepcid daily for the next 2 weeks and take Compazine as needed for nausea and vomiting Try to stay away from marijuana Stay away from spicy foods, acidic foods and caffeine is much as possible Return earlier should you have new or worsening complaints Referrals: Lele Ojeda MD [ [facility] STAFF PHYSICIAN] - 1 day Discharge Data Discharge Date/Time-TO BE ENTERED AT DEPARTURE: 09/07/24 21:43 HPI General Date/Time Provider Initiated Documentation: 09/07/24 19:54 . HPI Narrative: 24-year-old female with nausea, vomiting, and abdominal pain linked to marijuana use. Presents with persistent epigastric pain and nausea after yesterday's evaluation, including CT scan and blood work. Discharged on Zofran but reports worsening symptoms today. No primary care physician. Current pain episode consistent with pain since age 18. Denies chest pain, shortness of breath, fever, or chills. Related Data Home Medications ?Medication ?Instructions ?Recorded ?Confirmed albuterol sulfate 90 mcg/actuation 1 inh inhalation ONCE #6.7 grams 03/31/22 09/06/24 aerosol inhaler omeprazole 20 mg capsule,delayed 20 mg PO DAILY 04/29/24 09/06/24 release ondansetron 4 mg disintegrating 4 mg PO .q8hr PRN #30 tabs 09/06/24 tablet esomeprazole magnesium 20 mg 20 mg PO DAILY #30 caps 09/07/24 capsule,delayed release famotidine 20 mg tablet (Pepcid) 20 mg PO DAILY #30 tabs 09/07/24 prochlorperazine maleate 10 mg 10 mg PO Q6H PRN #30 tabs 09/07/24 tablet (Compazine) sucralfate 1 gram tablet (Carafate) 1 g PO BID #60 tabs 09/07/24 Previous Rx's ?Medication ?Instructions ?Recorded albuterol sulfate 90 mcg/actuation 1 inh inhalation ONCE #6.7 grams 03/31/22 aerosol inhaler ondansetron 4 mg disintegrating 4 mg PO .q8hr PRN #30 tabs 09/06/24 tablet esomeprazole magnesium 20 mg 20 mg PO DAILY #30 caps 09/07/24 capsule,delayed release famotidine 20 mg tablet (Pepcid) 20 mg PO DAILY #30 tabs 09/07/24 prochlorperazine maleate 10 mg 10 mg PO Q6H PRN #30 tabs 09/07/24 tablet (Compazine) sucralfate 1 gram tablet (Carafate) 1 g PO BID #60 tabs 09/07/24 Allergies Allergy/AdvReac Type Severity Reaction Status Date / Time Penicillins Allergy Other (See Unverified 09/06/24 09:31 Comment) General Stated Complaint: Abd Prob ALLY: 4 Exam Narrative Exam Narrative: General Appearance: Alert and oriented, no distress. Vital signs: Within normal limits. HEENT: Within normal limits. Respiratory: Within normal limits. Gastrointestinal: Epigastric tenderness without rebound or guarding. Back, Musculoskeletal: No CVA tenderness. Skin: Warm and dry, no rash. Neurological: Normal. Course Vital Signs Vital signs: Vital Signs Temperature 37.0 C 09/07/24 18:43 Pulse 58 L 09/07/24 18:43 Respiratory Rate 16 09/07/24 18:43 Blood Pressure 124/78 09/07/24 18:43 Pulse Oximetry 97 09/07/24 18:43 Temperature 37 C 09/07/24 21:43 Temperature Source Oral 09/07/24 18:43 Pulse 54 L 09/07/24 21:43 Respiratory Rate 17 09/07/24 21:43 Blood Pressure 131/73 09/07/24 21:43 Blood Pressure Position Sitting 09/07/24 18:43 Pulse Oximetry 100 09/07/24 21:43 Oxygen Delivery Method Room Air 09/07/24 18:43 Oxygen Flow Rate 0 09/07/24 18:43 Pain Level 7 09/07/24 18:43 Medical Decision Making Laboratory Studies: Normal lipase levels, no leukocytosis. Imaging: CT abdomen/pelvis showed no acute abnormality. Initial Assessment: 24-year-old female with history of nausea, vomiting, and abdominal pain associated with marijuana use. Persistent epigastric pain and nausea after yesterday's CT scan and blood work. ED Course: - Reviewed patient's CT scan of abdomen and pelvis from yesterday. No evidence of acute abnormality. Per radiology interpretation and my review. - Diagnostic blood work including lipase were reassuring. No leukocytosis. - Given GI cocktail and Zofran. Improvement in symptoms. - Placed on Carafate, Pepcid, omeprazole, and antiemetics. Final Assessment: Comprehensive evaluation completed. No clear indication for repeating labs and imaging at this time. Clinical Impression: - Epigastric pain Disposition: - Discharge - Referral to primary care physician - Likely outpatient endoscopy, referred to surgery MDM Components Evaluation: - Number of Differential Diagnoses or Management Options: Epigastric pain - Amount and Complexity of Data Reviewed: CT scan of abdomen and pelvis, diagnostic blood work including lipase - Risk of Complication and Morbidity or Mortality: Low threshold to return should she have new or worsening complaints Quality:SDOH Health Related Social Needs: No Data to Display PFSH All Active Problems (Updated 09/07/24 @ 21:25 by SID Calvert) Gastritis (Acute) Nausea and vomiting (Acute) ADD (attention deficit disorder) (Chronic) ADHD Adult Self -Report - very positive for ADD. has h/o inattention throu ghout school years Uses contraception (Acute) OCPs until 02/2021. Liletta IUD for convenience Until 10/2021 but it was removed and OCPs to be started Oral contraception initial prescription (Acute) Bipolar disorder (Acute) Anxiety and depression (Chronic) Abdominal pain (Acute) Urinary tract infection (Acute) Constipation (Acute) Nausea and vomiting (Acute) Ovarian cyst (Acute) Gastritis (Acute) Trauma and stressor-related disorder (Acute) Medical History Encounter for IUD removal Elevated lipids (02/25/16) Penicillin allergy Wears glasses Smoker in home outside Surgical History Myringotomy w/ PE (pressure equalizing) tubes bilateral; needed f/u surgery for perforated tympanic membrane. Family History Mother Mental disorder anxiety/depression Father No problems noted. Other Substance abuse mat/pat sides Alcohol abuse mat/pat sides Essential hypertension pat uncle Heart disease pat GGF & MGF Hyperlipidemia PGF Myocardial infarction pat GGF Asthma mat/pat sides Social History Smoking/Tobacco Use Status: Unknown Second Hand Exposure: Yes Smoking risk assessment performed?: Yes Alcohol Intake: former Drug use: Daily Substance use type: marijuana Adopted: No Foster care: No Household members: other Details: - C. 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 Pets and animals: Yes (1 cat) Pets and animals: cat(s) Current gender identity: female Seatbelt use: always Helmet use: Yes Fire extinguisher in home: Yes Carbon monox detector in home: Yes Firearms in home: No Do you feel safe at home: Yes Do you feel safe in your relationship?: Yes History History 1 Para Hx # Term Pregnancies Multiple births Hx # Pregnancies Ectopic pregnancies AB induced Hx Number of Living Children AB spontaneous
== END 2024-09-07 21:43 | disposition home or self-care (01) ==
PROVIDERS: Emergency Provider Physician Assistant; PCP Nurse Practitioner Family
DX: K29.70 Gastritis, unspecified, without bleeding (principal)
CPT/HCPCS: 96374; 99284; 99283; J0780

== ENCOUNTER 2024-11-06 06:28 | Emergency (ER) | payer BC, SELFPAY ==
[2024-11-06] VITALS (18 sets, daily range): BP systolic 113–176; BP diastolic 59–111; PULSE 49–75; RESP 10–37; O2SAT 96–100
--- NOTE | 2024-11-06 06:57 | ED.GENADUL_ITS ---
Discharge Plan Disposition Patient Disposition: Home Condition: Stable Discharge Details Clinical Impression: Cyclic vomiting syndrome Primary Care Provider: Gina Babcock ED Provider: Liza Benavides Home Meds and New Rx's Prescriptions: New capsaicin 0.1 % cream 1 applic topical BID PRNQty: 56.6 0RF Rx Instructions: do not wash area for at least 30 min after application omeprazole 20 mg capsule,delayed release(DR/EC) 20 mg PO DAILY 30 Days Qty: 30 0RF No Action albuterol sulfate 90 mcg/actuation HFA aerosol inhaler 1 inh inhalation ONCE Qty: 6.7 0RF ondansetron 4 mg tablet,disintegrating 4 mg PO .q8hr PRNQty: 30 0RF sucralfate [Carafate] 1 gram tablet 1 g PO BID Qty: 60 0RF esomeprazole magnesium 20 mg capsule,delayed release(DR/EC) 20 mg PO DAILY Qty: 30 0RF famotidine [Pepcid] 20 mg tablet 20 mg PO DAILY Qty: 30 0RF prochlorperazine maleate [Compazine] 10 mg tablet 10 mg PO Q6H PRNQty: 30 0RF omeprazole 20 mg capsule,delayed release(DR/EC) 20 mg PO DAILY Discharge Instructions Instructions: Nausea and vomiting in adults Additional Instructions: You were seen in the emergency department today for evaluation of vomiting, which could be due to cyclical vomiting/cannabis hyperemesis. You had reassuring laboratory studies, and received medications and fluids to improve your symptoms. I recommend continued good hydration and nutrition, and provided you with a prescription for capsaicin cream to trial, as well as a refill of your omeprazole. I do recommend that you trial complete cessation from marijuana, and you may need to continue with this for several months before you feel complete resolution of your symptoms. Please follow-up with your primary care provider in the next few days to discuss this visit and any symptoms that change, worsen, or persist. Thank you for allowing us to be part of your care. HPI General Mode of arrival: ambulatory . Date/Time Provider Initiated Documentation: 11/06/24 06:50 . Limitations to Documentation: no limitations . Information obtained by: patient and old records reviewed . HPI Narrative: This is a 24-year-old female patient with a past medical history significant for cyclical vomiting symptoms, ovarian cyst, who is presenting for evaluation of nausea and vomiting since Wednesday. She reports that her symptoms have been persistent, and have not improved at home. She states that she has not been able to tolerate oral intake, was historically on omeprazole but stopped taking it that she has not been able to reestablish the patient reports that she is having generalized allover abdominal pain. Abdominal surgery. She did have a CT of her abdomen and pelvis performed 1 month ago was reassuring. She states that she does not have diarrhea, no one else in her home is sick with similar sy mptoms. She took ibuprofen around 4 AM without significant relief. She reports that she has cut down on her marijuana use, but continues to use it on occasion. Related Data Home Medications ?Medication ?Instructions ?Recorded ?Confirmed albuterol sulfate 90 mcg/actuation 1 inh inhalation ONCE #6.7 grams 03/31/22 11/06/24 aerosol inhaler omeprazole 20 mg capsule,delayed 20 mg PO DAILY 04/29/24 11/06/24 release ondansetron 4 mg disintegrating 4 mg PO .q8hr PRN #30 tabs 09/06/24 11/06/24 tablet esomeprazole magnesium 20 mg 20 mg PO DAILY #30 caps 09/07/24 11/06/24 capsule,delayed release famotidine 20 mg tablet (Pepcid) 20 mg PO DAILY #30 tabs 09/07/24 11/06/24 prochlorperazine maleate 10 mg 10 mg PO Q6H PRN #30 tabs 09/07/24 11/06/24 tablet (Compazine) sucralfate 1 gram tablet (Carafate) 1 g PO BID #60 tabs 09/07/24 11/06/24 capsaicin 0.1 % topical cream 1 applic topical BID PRN #56.6 11/06/24 grams omeprazole 20 mg capsule,delayed 20 mg PO DAILY 30 days #30 caps 11/06/24 release Previous Rx's ?Medication ?Instructions ?Recorded albuterol sulfate 90 mcg/actuation 1 inh inhalation ONCE #6.7 grams 03/31/22 aerosol inhaler ondansetron 4 mg disintegrating 4 mg PO .q8hr PRN #30 tabs 09/06/24 tablet esomeprazole magnesium 20 mg 20 mg PO DAILY #30 caps 09/07/24 capsule,delayed release famotidine 20 mg tablet (Pepcid) 20 mg PO DAILY #30 tabs 09/07/24 prochlorperazine maleate 10 mg 10 mg PO Q6H PRN #30 tabs 09/07/24 tablet (Compazine) sucralfate 1 gram tablet (Carafate) 1 g PO BID #60 tabs 09/07/24 capsaicin 0.1 % topical cream 1 applic topical BID PRN #56.6 11/06/24 grams omeprazole 20 mg capsule,delayed 20 mg PO DAILY 30 days #30 caps 11/06/24 release Allergies Allergy/AdvReac Type Severity Reaction Status Date / Time Penicillins Allergy Other (See Unverified 11/06/24 06:33 Comment) General Stated Complaint: Nausea/Vomit/Diar ALLY: 3 Exam Narrative Exam Narrative: Gen: Awake and alert, appears uncomfortable and tearful HEENT: Non-icteric sclera Neck: Supple Lungs: No apparent respiratory distress, normal respiratory effort. Lung sounds clear and equal bilaterally without wheezes, rhonchi, rales CV: Appears well perfused, heart with regular rate and rhythm, strong distal pulses Abdomen: Non-distended, soft, generalized tenderness to palpation throughout, no rigidity, voluntary guarding appreciated MSK: Moves 4 extremities without apparent limitation in ROM Skin: Visualized skin without rashes, cyanosis. Neuro: Normal Gait, no obvious focal deficits or facial asymmetry. Speaks in full, clear sentences. Psych: Appropriate for situation. Course Vital Signs Vital signs: Vital Signs Pulse 53 L 11/06/24 06:31 Respiratory Rate 18 11/06/24 06:31 Blood Pressure 113/89 11/06/24 06:31 Pulse Oximetry 98 11/06/24 06:31 Pulse 60 11/06/24 06:50 Pulse 59 L 11/06/24 06:50 Respiratory Rate 14 11/06/24 06:50 Blood Pressure 156/77 H 11/06/24 06:46 Blood Pressure Mean 101 11/06/24 06:46 Blood Pressure Position Sitting 11/06/24 06:31 Pulse Oximetry 99 11/06/24 06:50 Oxygen Delivery Method Room Air 11/06/24 06:31 Oxygen Flow Rate 0 11/06/24 06:31 Medical Decision Making This is a 24-year-old female patient presenting for evaluation of nausea with vomiting and abdominal pain. My differential includes but is not limited to cannabis hyperemesis, cyclical vomiting, gastritis, pancreatitis, no diarrhea to suggest gastroenteritis. Considered cholecystitis and hepatitis, appendicitis, diverticulitis (less consistent with the patient's physical examination, which includes generalized tenderness. She has no fever or tachycardia, but I did consider metabolic and electrolyte derangements, kidney injury, dehydration, liver disease. The patient's CT from 1 month ago was reviewed, she has no evidence for aortic pathology, and is a low risk person for mesenteric ischemia. Considered ectopic , urinary tract infection, and nephrolithiasis, considered PID and TOA, though the patient is without vaginal symptoms. I will obtain laboratory studies to include CBC, CMP, magnesium, lipase, urinalysis, and [id number] . Will provide the patient with a dose of droperidol and Benadryl as well as IV fluids for rehydration. - I reviewed the patient's laboratory studies, which show a mild leukocytosis to 13.9, which has been demonstrated on prior labs. No anemia or thrombocytopenia, chemistry panel with borderline potassium but no other electrolyte abnormalities, no evidence of kidney or liver dysfunction. Lipase is low, urinalysis with blood and ketones, no other infectious findings. After medications and fluids the patient reports a total resolution of her symptoms, I am most concerned for cannabis hyperemesis versus cyclical vomiting, patient's abdominal examination is benign and she is otherwise had a reassuring workup. I counseled her on cessation of marijuana use, provided her with a prescription for capsaicin cream and a refill of her omeprazole. I will have case management follow-up on her referrals to general surgery and primary care. At this time, the patient has had a full medical evaluation and is safe for discharge to home. They are hemodynamically stable, ambulatory, and tolerating PO. They are understanding of the follow-up plan and return precautions. They left our facility without incident. Liza Benavides MD Medical Records Medical records reviewed: Yes I reviewed the patient's medical records. Lab Data Lab results reviewed: Yes I reviewed the patient's lab results. Quality:SDOH Health Related Social Needs: No Data to Display PFSH All Active Problems (Updated 11/06/24 @ 08:05 by Liza Benavides MD) Cyclic vomiting syndrome (Acute) ADD (attention deficit disorder) (Chronic) ADHD Adult Self -Report - very positive for ADD. has h/o inattention throughout school years Uses contraception (Acute) OCPs until 02/2021. Liletta IUD for convenience Until 10/2021 but it was removed and OCPs to be started Oral contraception initial prescription (Acute) Bipolar disorder (Acute) Anxiety and depression (Chronic) Abdominal pain (Acute) Urinary tract infection (Acute) Constipation (Acute) Nausea and vomiting (Acute) Ovarian cyst (Acute) Gastritis (Acute) Trauma and stressor-related disorder (Acute) Medical History Encounter for IUD removal Elevated lipids (02/25/16) Penicillin allergy Wears glasses Smoker in home outside Surgical History Myringotomy w/ PE (pressure equalizing) tubes bilateral; needed f/u surgery for perforated tympanic membrane. Family History Mother Mental disorder anxiety/depression Father No problems noted. Other Substance abuse mat/pat sides Alcohol abuse mat/pat sides Essential hypertension pat uncle Heart disease pat GGF & MGF Hyperlipidemia PGF Myocardial infarction pat GGF Asthma mat/pat sides Social History Smoking/Tobacco Use Status: Unknown Second Hand Exposure: Yes Smoking risk assessment performed?: Yes Alcohol Intake: former Drug use: Daily Substance use type: marijuana Adopted: No Foster care: No Household members: other Details: BF - C. J. 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 Pets and animals: Yes (1 cat) Pets and animals: cat(s) Current gender identity: female Seatbelt use: always Helmet use: Yes Fire extinguisher in home: Yes Carbon monox detector in home: Yes Firearms in home: No Do you feel safe at home: Yes Do you feel safe in your relationship?: Yes History History 1 Para Hx # Term Pregnancies Multiple births Hx # Pregnancies Ectopic pregnancies AB induced Hx Number of Living Children AB spontaneous
[2024-11-06 07:00] LABS: Abs Immature Grans 0.07 10^3/uL (0.0-0.06); Absolute Basophil Count 0.04 10^3/uL (0.0-0.2); Absolute Eosinophil Count 0.01 10^3/uL (0.0-0.7); Absolute Lymphocyte Count 1.25 10^3/uL (1.2-3.4); Basophils % 0.3 %; Eosinophils % 0.1 %; HCT 39.1 % (36.0-46.0); Immature Grans % 0.5 %; Lymphocytes % 8.9 %; MCH 30.4 pg (27.0-33.0); MCHC 35.8 % (32.0-36.0); MCV 85 fL (80-95); MPV 9.3 fL (8.0-11.0); Monocytes % 3.9 %; Neutrophils % 86.3 %; Platelet Count 361 10^3/uL (130-400); RBC 4.61 10^6/uL (3.93-5.22); RDW 11.8 % (11.7-14.6); RDW-SD 35.8 fL; WBC 13.99 10^3/uL (4.4-10.8)
[2024-11-06] MEDS: Droperidol 5 MG/2 ML VIAL 1.25 MG IVP (07:06)
[2024-11-06 07:07] LABS: Absolute Monocyte Count 0.55 10^3/uL (0.1-0.8); Absolute Neutrophil Count 12.07 10^3/uL (1.2-6.7)
[2024-11-06] MEDS: diphenhydrAMINE 50 MG/ML VIAL 25 MG IVP (07:07)
[2024-11-06] MEDS: Lactated Ringers 1,000 ML 1000 ML IV (07:16)
[2024-11-06 07:25] LABS: ALT 22 U/L (14-59); AST 15 U/L (15-37); Albumin 4.1 g/dL (3.4-5.0); Alkaline Phosphatase 64 U/L (46-116); Anion Gap 12.6 mmol/L (3-11); BUN 12 mg/dL (7-18); Bilirubin, Total 0.6 mg/dL (0.2-1.0); CO2 26.4 mmol/L (21.0-32.0); CREATININE 0.8 mg/dL (0.55-1.02); Calcium 9.5 mg/dL (8.5-10.1); Chloride 100 mmol/L (98-107); Estimated GFR 106.77 (mL/min/1.73m2); Glucose 134 mg/dL (74-106); Lipase 33 U/L (<78); Potassium 3.4 mmol/L (3.5-5.1); Sodium 139 mmol/L (136-145); Total Protein 7.9 g/dL (6.4-8.2)
[2024-11-06 08:19] LABS: Bilirubin Small (Negative); Blood Large (Negative); Clarity Clear (Clear); Glucose Negative (Negative); Ketones >=160 mg/dL (Negative); Leukocyte Esterase Negative (Negative); Nitrite Negative (Negative); Specific Gravity >= 1.030 (1.005-1.025); pH 6.5 (5-8)
[2024-11-06 08:27] LABS: Bacteria Negative HPF (Negative); C & S Indicated? No; Casts 0-2 Hyaline LPF (Negative); Crystals Negative HPF (Negative); Epithelial Cells Few HPF (Negative); Mucus Moderate (Negative); WBC 0-2 HPF (0-5)
== END 2024-11-06 08:16 | disposition home or self-care (01) ==
PROVIDERS: Emergency Provider Emergency Medicine; PCP Nurse Practitioner Family
DX: R11.15 Cyclical vomiting syndrome unrelated to migraine (principal); F12.90 Cannabis use, unspecified, uncomplicated
CPT/HCPCS: 36415; 80053; 83690; 96374; 96375; 99284; 81003; 81015; 83735; 85025; J1200; J1790